=== PATIENT | female | born 1935 | race Caucasian/White ===

== ENCOUNTER 2020-10-01 12:46 | Emergency (ER) | payer MEDICARE, OTHER ==
--- NOTE | 2020-10-01 14:16 | CR ---
Chest: Portable view of the chest was obtained. Comparison: No prior chest imaging is available. Heart size is within normal limits for portable technique. Tortuous thoracic aorta is seen. Linear density is noted within the left midlung either due to atelectasis or minimal scarring. Lungs otherwise are clear. Bony structures show nothing acute. Impression: 1. Nothing acute is identified on portable chest x-ray. Diagnostic code #2
[2020-10-01] MEDS ORDERED: Meclizine 12.5 MG Tab PO ONE (14:31)
[2020-10-01] MEDS ORDERED: Meclizine 12.5 MG Tab ONE (14:36)
--- NOTE | 2020-10-01 14:41 | EDM.PDOC ---
ED HPI GENERAL MEDICAL PROBLEM - General Chief Complaint: Gastrointestinal Problem Stated Complaint: DIZZY/SOB/NAUSEA Time Seen by Provider: 10/01/20 13:03 Source of Information: Reports: Patient, Family, RN Notes Reviewed - History of Present Illness INITIAL COMMENTS - FREE TEXT/NARRATIVE: 85 yr old female has had vertigo type dizziness for 2 days. She had nausea with dry heaves earlier today. Now resting in bed not moving feels better at time of exam. No Anglin, fever or chills. No ear pain. No chest pain or difficulty breathing. - Related Data Allergies Allergy/AdvReac Type Severity Reaction Status Date / Time No Known Allergies Allergy Verified 10/01/20 12:58 Home Meds: Home Meds Meclizine [Antivert] 12.5 mg PO BID #14 tab 10/01/20 [Rx] Past Medical History HEENT History: Reports: Impaired Vision Cardiovascular History: Reports: Hypertension Musculoskeletal History: Reports: Osteoporosis Neurological History: Reports: Other (See Below) Other Neuro History: Dementia Psychiatric History: Reports: Dementia - Past Surgical History HEENT Surgical History: Reports: Other (See Below) Other HEENT Surgeries/Procedures: Throat Surgery Female Surgical History: Reports: Hysterectomy Social & Family History - Tobacco Use Tobacco Use Status *Q: Never Tobacco User - Caffeine Use Caffeine Use: Reports: Coffee - Recreational Drug Use Recreational Drug Use: No ED ROS GENERAL - Review of Systems Review Of Systems: See Below Constitutional: Denies: Fever, Chills, Diaphoresis HEENT: Denies: Ear Discharge, Ear Pain, Sinus Problem Respiratory: Denies: Shortness of Breath, Cough Cardiovascular: Denies: Chest Pain GI/Abdominal: Reports: Nausea, Vomiting (dry heaves, gone). Denies: Abdominal Pain Musculoskeletal: Denies: Shoulder Pain, Arm Pain, Back Pain Skin: Reports: No Symptoms Neurological: Reports: Dizziness. Denies: Headache, Numbness, Tingling, Trouble Speaking ED EXAM, DIZZINESS - Physical Exam Exam: See Below General Appearance: Alert, No Apparent Distress Eye Exam: Bilateral Eye: PERRL, Other (no nystagmus noted at time of exam) Ears: Normal External Exam, Normal Canal, Normal TMs Throat/Mouth: Normal Inspection, Normal Oropharynx Head Exam: Atraumatic Neck: Supple. No: Lymphadenopathy (L), Lymphadenopathy (R) Respiratory/Chest: No Respiratory Distress, Lungs Clear, Normal Breath Sounds Cardiovascular: Regular Rate, Rhythm GI/Abdominal: Soft, Non-Tender Neurological: Alert, No Motor/Sensory Deficits Skin Exam: Warm, Dry, Normal Color #1 Interpretation EKG Date: 10/01/20 Rhythm: NSR [place]: Normal P-Wave: Present QRS: Other (Q waves lead III) ST-T: Elevated (slight st elevation V2) QT: Normal Course - Vital Signs Last Recorded V/S: Last Vital Signs Temp 98.8 F 10/01/20 15:00 Pulse 79 10/01/20 15:00 Resp 18 10/01/20 15:00 BP 139/104 H 10/01/20 15:00 Pulse Ox 99 10/01/20 15:00 - Orders/Labs/Meds Orders: Active Orders 24 hr Category Date Time Status Head wo Cont [CT] Stat Exams 10/01/20 13:38 Taken Labs: Laboratory Tests 10/01/20 10/01/20 Range/Units 12:59 13:33 WBC 7.68 (3.98-10.04) K/mm3 RBC 4.26 (3.98-5.22) M/mm3 Hgb 12.5 (11.2-15.7) gm/dl Hct 39.1 (34.1-44.9) % MCV 91.8 (79.4-94.8) fl MCH 29.3 (25.6-32.2) pg MCHC 32.0 L (32.2-35.5) g/dl RDW Std Deviation 46.1 (36.4-46.3) fL Plt Count 272 (182-369) K/mm3 MPV 9.9 (9.4-12.3) fl Neut % (Auto) 80.8 H (34.0-71.1) % Lymph % (Auto) 9.9 L (19.3-51.7) % [place] % (Auto) 8.7 (4.7-12.5) % Eos % (Auto) 0.4 L (0.7-5.8) Baso % (Auto) 0.1 (0.1-1.2) % Neut # (Auto) 6.20 H (1.56-6.13) K/mm3 Lymph # (Auto) 0.76 L (1.18-3.74) K/mm3 [place] # (Auto) 0.67 H (0.24-0.36) K/mm3 Eos # (Auto) 0.03 L (0.04-0.36) K/mm3 Baso # (Auto) 0.01 (0.01-0.08) K/mm3 Manual Slide Review Normal smear Sodium 141 (136-145) mEq/L Potassium 4.0 (3.5-5.1) mEq/L Chloride 104 (98-107) mEq/L Carbon Dioxide 27 (21-32) mEq/L Anion Gap 14.0 (5-15) BUN 19 H (7-18) mg/dL Creatinine 1.2 H (0.55-1.02) mg/dL Est Cr Clr Drug Dosing 23.72 mL/min Estimated GFR (MDRD) 42 (>60) mL/min BUN/Creatinine Ratio 15.8 (14-18) Glucose 122 H (70-99) mg/dL Calcium 8.7 (8.5-10.1) mg/dL Total Bilirubin 0.4 (0.2-1.0) mg/dL AST 18 (15-37) U/L ALT 15 (14-59) U/L Alkaline Phosphatase 75 (46-116) U/L Troponin I < 0.017 (0.00-0.056) ng/mL Total Protein 7.2 (6.4-8.2) g/dl Albumin 3.5 (3.4-5.0) g/dl Globulin 3.7 gm/dL Albumin/Globulin Ratio 1.0 (1-2) Meds: Medications Discontinued Medications Generic Name Dose Route Start Last Admin Trade Name Aleksander PRN Reason Stop Dose Admin Meclizine HCl 12.5 mg 10/01/20 14:31 10/01/20 14:38 Meclizine 12.5 Mg Tab PO 10/01/20 14:32 12.5 mg ONETIME ONE Administration Meclizine HCl Confirm 10/01/20 14:36 10/01/20 14:39 Meclizine 12.5 Mg Tab Administered 10/01/20 14:37 Not Given Dose 12.5 mg .ROUTE .STK-MED ONE - Re-Assessments/Exams Free Text/Narrative Re-Assessment/Exam: 10/01/20 15:35 EKG, labs, CXR nl, have given antivert 12.5 mg PO. Departure - Departure Time of Disposition: 14:49 Disposition: Home, Self-Care 01 Condition: Fair Clinical Impression: Vertigo Diarrhea Qualifiers: Diarrhea type: unspecified type Qualified Code(s): R19.7 - Diarrhea, unspecified - Discharge Information Prescriptions: Meclizine [Antivert] 12.5 mg PO BID #14 tab Instructions: Vertigo, [id number] Referrals: Néstor Collazo MD [Primary Care Provider] - Forms: ED Department Discharge Additional Instructions: Antivert 12.5 mg twice daily for dizziness. Rest. Move slowly and carefully until symptoms of dizziness have completely resolved. Probiotic twice daily for the next 2 weeks or until after symptoms of dizziness have resolved. Follow up clinic as needed. Return to ED as needed if symptoms worsening in any way. Sepsis Event Note (ED) - Evaluation Sepsis Screening Result: No Definite Risk - Focused Exam Vital Signs: Vital Signs Temp Pulse Resp BP Pulse Ox 10/01/20 15:00 98.8 F 79 18 139/104 H 99 10/01/20 12:53 98.6 F 79 18 170/93 H 97 - My Orders Last 24 Hours: My Active Orders 10/01/20 13:38 Head wo Cont [CT] Stat - Assessment/Plan Last 24 Hours: My Active Orders 10/01/20 13:38 Head wo Cont [CT] Stat
--- NOTE | 2020-10-02 11:15 | CT ---
Head CT Technique: Multiple axial sections through the brain were obtained. Intravenous contrast was not utilized. Reconstructed coronal and sagittal images were obtained. Comparison: No prior intracranial imaging is available. Findings: Ventricles along with basal cisterns and sulci over the convexities are mildly prominent. Diminished density is noted within the periventricular and subcortical white matter which is most likely due to small vessel ischemic demyelination change. 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 No other abnormal parenchymal densities are seen. Atherosclerotic calcification is noted within the carotid siphon and within the vertebral vessels. Bone window settings were reviewed which show no acute calvarial abnormality. Visualized mastoid sinuses and paranasal sinuses show nothing acute. Impression: 1. Senescent change as described above. 2. Nothing acute is definitely appreciated on noncontrast head CT study. Diagnostic code #2 MTDD
== END 2020-10-01 15:04 | disposition home or self-care (01) ==
LOC: JD.ED 12:46
DX: R42 Dizziness and giddiness (principal); R19.7 Diarrhea, unspecified; I10 Essential (primary) hypertension
CPT/HCPCS: 36415; 70450; 71045; 80053; 84484; 85025; 93005; 99284; A9270; 93010; 99283

== ENCOUNTER 2020-10-02 08:41 | Inpatient (IN) | payer MEDICARE, OTHER ==
[2020-10-02] MEDS ORDERED: Metoclopramide 10 MG/2 ML SDV IVPUSH ONE (09:07)
--- NOTE | 2020-10-02 09:11 | EDM.PDOC ---
ED HPI GENERAL MEDICAL PROBLEM - General Chief Complaint: General Stated Complaint: [facility] Time Seen by Provider: 10/02/20 08:55 Source of Information: Reports: Patient, Family (One of her daughters arrives with her. She provides the little bit of history that she knows about.) History Limitations: Reports: Altered Mental Status (Patient apparently has a history of dementia.) - History of Present Illness INITIAL COMMENTS - FREE TEXT/NARRATIVE: 85-year-old female presents to the ED per [place] ambulance. Patient does not offer much in the way of history. History was primarily received from one of her daughters. The history provided by paramedics indicate that she was found outside in the driveway of her home about 0200 hrs. this morning seated. Unclear if she fell but they could not identify any obvious injuries. Apparently whenever other daughters was staying with her last evening. Of note the patient was seen through the ED yesterday with vertigo-like symptoms and has been treated with Antivert tablets. She did have a low-grade fever yesterday at 98.8 degrees with a slight left shift in her lab work at 80.8% neutrophils. She has been incontinent of urine appreciated by nursing staff at this time and the urine has a foul odor to it. The patient is not able to state that she has any dysuria urgency or frequency. Temperature today is 97.7. Onset: Unknown/Unsure (As described above she was found outside in her driveway at 0200 hrs. this morning seated. Unclear if she lost her balance due to vertigo symptoms and fell but there is no outward signs of any injuries. Patient herself is not able to provide any useful information or history.) Onset Date: 10/02/20 Duration: Hour(s): Location: Reports: Other (No obvious source of injuries identified.) Quality: Reports: Other (And wandering outside her home at 0200 hrs. this morning. She does have a history apparently of dementia. But she lives alone.) Severity: Moderate Improves with: Reports: None Worsens with: Reports: None Context: Reports: Other (Confusion.). Denies: Activity, Exercise, Lifting, Sick Contact, Trauma Associated Symptoms: Reports: Confusion, Cough (Nonproductive), Loss of Appetite, Malaise, Nausea/Vomiting (Nausea with no known vomiting.). Denies: Chest Pain, cough w sputum Treatments RESOURCE CONSERVATIONIST: Reports: Other (see below) (Was started on Antivert 12.5 mg every 8 hours yesterday.) - Related Data Allergies Allergy/AdvReac Type Severity Reaction Status Date / Time No Known Allergies Allergy Verified 10/01/20 12:58 Home Meds: Home Meds Meclizine [Antivert] 12.5 mg PO BID #14 tab 10/01/20 [Rx] Past Medical History HEENT History: Reports: Impaired Vision Cardiovascular History: Reports: Hypertension Musculoskeletal History: Reports: Osteoporosis Neurological History: Reports: Other (See Below) Other Neuro History: Dementia Psychiatric History: Reports: Dementia - Past Surgical History HEENT Surgical History: Reports: Other (See Below) Other HEENT Surgeries/Procedures: Throat Surgery Female Surgical History: Reports: Hysterectomy (And likely bilateral oophorectomy for salpingo-oophorectomy. It is suspect that she also had a coincidental appendectomy as the surgery was done over 40 years ago.) Social & Family History - Caffeine Use Caffeine Use: Reports: Coffee - Living Situation & Occupation Living situation: Reports: , Alone Occupation: Retired ED ROS GENERAL - Review of Systems Review Of Systems: See Below Constitutional: Reports: Malaise, Fatigue, Decreased Appetite (Has not eaten yet today.). Denies: Fever, Chills HEENT: Reports: Glasses Respiratory: Reports: Shortness of Breath, Cough (Patient claims a cough but I did not hear her cough.). Denies: Wheezing, Pleuritic Chest Pain, Sputum Cardiovascular: Reports: Blood Pressure Problem, Dyspnea on Exertion (Apparently having vertigo symptoms yesterday.), Other. Denies: Chest Pain, Claudication, Orthopnea Endocrine: Reports: Fatigue GI/Abdominal: Reports: Decreased Appetite : Reports: Incontinence (Urinary incontinence appreciate by nursing staff. She is wearing a depends. Urine apparently smells very foul.) Musculoskeletal: Reports: Neck Pain (Arthritic changes knees hips low back neck and shoulders.), Joint Pain Skin: Reports: No Symptoms Neurological: Reports: Confusion, Other (Presented to the ED apparently with vertigo-like symptoms yesterday.) Psychiatric: Reports: Confusion, Other (Carries a diagnosis in the chart of dementia.) Hematologic/Lymphatic: Reports: No Symptoms Immunologic: Reports: No Symptoms ED EXAM, GENERAL - Physical Exam Exam: See Below Exam Limited By: Altered Mental Status (Patient appears confused and does not answer questions. She does seem to obey commands.) General Appearance: No Apparent Distress, Other (Temperature is 36.3 degrees. Heart rate 87 in sinus. Respiratory is 18 with O2 sats of 94%. BP 158/91 her socks are noted to be quite dirty as if she has been wandering outside.) Eye Exam: Bilateral Eye: Normal Inspection (Mild blepharal pallor appreciated no scleral icterus.), Nystagmus, PERRL Ears: Normal TMs (No nystagmus appreciated) Throat/Mouth: Other (Tongue is dry and coated.) Head: Atraumatic, Normocephalic, Other (No outward signs of head or facial trauma). No: Facial Swelling, Facial Tenderness Neck: Normal Inspection, Non-Tender. No: Carotid Bruit, Lymphadenopathy (L), Lymphadenopathy (R) Respiratory/Chest: No Respiratory Distress, Lungs Clear, Normal Breath Sounds, No Accessory Muscle Use Cardiovascular: Regular Rate, Rhythm, No Edema, No Gallop, No Murmur, No Rub. No: Normal Peripheral Pulses Peripheral Pulses: 2+: Carotid (L), Carotid (R), Posterior Tibial (L), Posterior Tibial (R), Dorsalis Pedis (L), Dorsalis Pedis (R) GI/Abdominal: Normal Bowel Sounds, Soft, Non-Tender, No Organomegaly, No Mass, Pelvis Stable, Other (Midline laparotomy from umbilicus to pubic symphysis compatible with total abdominal hysterectomy) (Female) Exam: Other (Patient is wearing a depends.) Back Exam: Normal Inspection, Full Range of Motion, Other (No outward signs of abrasions contusions to her back.). No: CVA Tenderness (L), CVA Tenderness (R) Extremities: Joint Swelling (Osteoarthritic changes in both hands particularly PIP and DIP joints. Some arthritis appreciated both hips and knees. No signs of any injury to any extremity), Other (Slight erythema over the right patella suggesting friction-like injury. There is no abrasion or open skin wounds.) Neurological: No: Oriented, CN II-XII Intact, Normal Cognition Psychiatric: Flat Affect Skin Exam: Warm, Dry, Intact, Normal Color, No Rash #1 Interpretation EKG Date: 10/02/20 Time: 09:23 Rhythm: NSR Rate (Beats/Min): 82 [place]: Normal P-Wave: Enlarged (Consider left atrial hypertrophy) QRS: Other (Q waves V1 and V2 consider old anteroseptal myocardial infarction. Decreased voltage limb and precordial leads.) ST-T: Other (Nonspecific T wave flattening aVL.) QT: Prolonged EKG Interpretation Comments: Abnormal ECG Course - Vital Signs Last Recorded V/S: Last Vital Signs Temp 36.8 C 10/02/20 19:11 Pulse 88 10/02/20 19:11 Resp 16 10/02/20 19:11 BP 130/66 10/02/20 19:11 Pulse Ox 97 10/02/20 19:11 - Orders/Labs/Meds Orders: Active Orders 24 hr Category Date Time Status CULTURE BLOOD [BC] Stat Lab 10/02/20 09:44 Received CULTURE BLOOD [BC] Stat Lab 10/02/20 09:53 Received Dextrose 5%-0.9% NaCl [Dextrose 5%-Normal Saline] 1,000 Med 10/02/20 11:00 Active ml IV ASDIRECTED Blood Culture x2 Reflex Set [OM.PC] Stat Oth 10/02/20 09:08 Ordered Medication Orders Acetaminophen (Acetaminophen 325 Mg Tab) 650 mg PO Q4H PRN PRN Reason: Pain (Mild 1-3)/fever Aspirin (Aspirin 81 Mg Tab.Chew) 81 mg PO DAILY [facility] Atorvastatin Calcium (Atorvastatin 40 Mg Tab) 40 mg PO BEDTIME [facility] Clopidogrel Bisulfate (Clopidogrel 75 Mg Tab) 75 mg PO DAILY [facility] Docusate Sodium (Docusate Sodium 100 Mg Cap) 100 mg PO BID PRN PRN Reason: Constipation Heparin Sodium (Porcine) (Heparin Sodium 5,000 Units/Ml Vial) 5,000 units SUBCUT Q8H [facility] Last Admin: 10/02/20 15:12 Dose: 5,000 units Documented by: ISABEL Dextrose/Sodium Chloride (Dextrose 5%-Normal Saline) 1,000 mls @ 75 mls/hr IV ASDIRECTED [facility] Ondansetron HCl (Ondansetron 4 Mg Tab.Dis) 4 mg PO Q4H PRN PRN Reason: nausea, able to take PO Ondansetron HCl (Ondansetron 4 Mg/2 Ml Sdv) 4 mg IV Q4H PRN PRN Reason: Nausea/Vomiting Sodium Chloride (Sodium Chloride 0.9% 10 Ml Syringe) 10 ml FLUSH ASDIRECTED PRN PRN Reason: Keep Vein Open Labs: Laboratory Tests 10/02/20 10/02/20 10/02/20 Range/Units 09:44 09:44 09:44 WBC 6.52 (3.98-10.04) K/mm3 RBC 3.96 L (3.98-5.22) M/mm3 Hgb 11.9 (11.2-15.7) gm/dl Hct 36.6 (34.1-44.9) % MCV 92.4 (79.4-94.8) fl MCH 30.1 (25.6-32.2) pg MCHC 32.5 (32.2-35.5) g/dl RDW Std Deviation 47.2 H (36.4-46.3) fL Plt Count 282 (182-369) K/mm3 MPV 10.1 (9.4-12.3) fl Neut % (Auto) 79.5 H (34.0-71.1) % Lymph % (Auto) 10.6 L (19.3-51.7) % [place] % (Auto) 9.2 (4.7-12.5) % Eos % (Auto) 0.2 L (0.7-5.8) Baso % (Auto) 0.3 (0.1-1.2) % Neut # (Auto) 5.19 (1.56-6.13) K/mm3 Lymph # (Auto) 0.69 L (1.18-3.74) K/mm3 [place] # (Auto) 0.60 H (0.24-0.36) K/mm3 Eos # (Auto) 0.01 L (0.04-0.36) K/mm3 Baso # (Auto) 0.02 (0.01-0.08) K/mm3 PT 10.3 (9.7-12.0) SECONDS INR 0.96 APTT 25.4 (21.7-31.4) SECONDS Sodium 142 (136-145) mEq/L Potassium 3.8 (3.5-5.1) mEq/L Chloride 105 (98-107) mEq/L Carbon Dioxide 25 (21-32) mEq/L Anion Gap 15.8 H (5-15) BUN 21 H (7-18) mg/dL Creatinine 1.3 H (0.55-1.02) mg/dL Est Cr Clr Drug Dosing 21.90 mL/min Estimated GFR (MDRD) 39 (>60) mL/min BUN/Creatinine Ratio 16.2 (14-18) Glucose 102 H (70-99) mg/dL Lactic Acid (0.4-2.0) mmol/L Calcium 8.6 (8.5-10.1) mg/dL Magnesium 2.1 (1.8-2.4) mg/dL Total Bilirubin 0.4 (0.2-1.0) mg/dL AST 19 (15-37) U/L ALT 19 (14-59) U/L Alkaline Phosphatase 72 (46-116) U/L Troponin I 0.082 H* (0.00-0.056) ng/mL C-Reactive Protein 0.5 (<1.0) mg/dL NT-Pro-B Natriuret Pep (0-450) pg/mL Total Protein 7.0 (6.4-8.2) g/dl Albumin 3.5 (3.4-5.0) g/dl Globulin 3.5 gm/dL Albumin/Globulin Ratio 1.0 (1-2) Triglycerides (<150) mg/dL Cholesterol (<200) mg/dL LDL Cholesterol Direct (<100) mg/dL HDL Cholesterol (40-59) mg/dL Urine Color (Yellow) Urine Appearance (Clear) Urine pH (5.0-8.0) Ur Specific [place] (1.005-1.030) Urine Protein (Negative) Urine Glucose (UA) (Negative) Urine Ketones (Negative) Urine Occult Blood (Negative) Urine Nitrite (Negative) Urine Bilirubin (Negative) Urine Urobilinogen (0.2-1.0) Ur Leukocyte Esterase (Negative) Urine RBC (0-5) /hpf Urine WBC (0-5) /hpf Ur Epithelial Cells (0-5) /hpf Urine Bacteria (FEW) /hpf Urine Mucus (FEW) /hpf Ethyl Alcohol 0.00 (0.00) gm% SARS-CoV-2 RNA ([facility]) (NEGATIVE) 10/02/20 10/02/20 10/02/20 Range/Units 09:44 09:44 09:44 WBC (3.98-10.04) K/mm3 RBC (3.98-5.22) M/mm3 Hgb (11.2-15.7) gm/dl Hct (34.1-44.9) % MCV (79.4-94.8) fl MCH (25.6-32.2) pg MCHC (32.2-35.5) g/dl RDW Std Deviation (36.4-46.3) fL Plt Count (182-369) K/mm3 MPV (9.4-12.3) fl Neut % (Auto) (34.0-71.1) % Lymph % (Auto) (19.3-51.7) % [place] % (Auto) (4.7-12.5) % Eos % (Auto) (0.7-5.8) Baso % (Auto) (0.1-1.2) % Neut # (Auto) (1.56-6.13) K/mm3 Lymph # (Auto) (1.18-3.74) K/mm3 [place] # (Auto) (0.24-0.36) K/mm3 Eos # (Auto) (0.04-0.36) K/mm3 Baso # (Auto) (0.01-0.08) K/mm3 PT (9.7-12.0) SECONDS INR APTT (21.7-31.4) SECONDS Sodium (136-145) mEq/L Potassium (3.5-5.1) mEq/L Chloride (98-107) mEq/L Carbon Dioxide (21-32) mEq/L Anion Gap (5-15) BUN (7-18) mg/dL Creatinine (0.55-1.02) mg/dL Est Cr Clr Drug Dosing mL/min Estimated GFR (MDRD) (>60) mL/min BUN/Creatinine Ratio (14-18) Glucose (70-99) mg/dL Lactic Acid 0.8 (0.4-2.0) mmol/L Calcium (8.5-10.1) mg/dL Magnesium (1.8-2.4) mg/dL Total Bilirubin (0.2-1.0) mg/dL AST (15-37) U/L ALT (14-59) U/L Alkaline Phosphatase (46-116) U/L Troponin I (0.00-0.056) ng/mL C-Reactive Protein (<1.0) mg/dL NT-Pro-B Natriuret Pep 2262 H (0-450) pg/mL Total Protein (6.4-8.2) g/dl Albumin (3.4-5.0) g/dl Globulin gm/dL Albumin/Globulin Ratio (1-2) Triglycerides 75 (<150) mg/dL Cholesterol 256 H (<200) mg/dL LDL Cholesterol Direct 152 H* (<100) mg/dL HDL Cholesterol 77.0 H (40-59) mg/dL Urine Color (Yellow) Urine Appearance (Clear) Urine pH (5.0-8.0) Ur Specific [place] (1.005-1.030) Urine Protein (Negative) Urine Glucose (UA) (Negative) Urine Ketones (Negative) Urine Occult Blood (Negative) Urine Nitrite (Negative) Urine Bilirubin (Negative) Urine Urobilinogen (0.2-1.0) Ur Leukocyte Esterase (Negative) Urine RBC (0-5) /hpf Urine WBC (0-5) /hpf Ur Epithelial Cells (0-5) /hpf Urine Bacteria (FEW) /hpf Urine Mucus (FEW) /hpf Ethyl Alcohol (0.00) gm% SARS-CoV-2 RNA ([place]ORRIE) (NEGATIVE) 10/02/20 10/02/20 Range/Units 10:20 10:20 WBC (3.98-10.04) K/mm3 RBC (3.98-5.22) M/mm3 Hgb (11.2-15.7) gm/dl Hct (34.1-44.9) % MCV (79.4-94.8) fl MCH (25.6-32.2) pg MCHC (32.2-35.5) g/dl RDW Std Deviation (36.4-46.3) fL Plt Count (182-369) K/mm3 MPV (9.4-12.3) fl Neut % (Auto) (34.0-71.1) % Lymph % (Auto) (19.3-51.7) % [place] % (Auto) (4.7-12.5) % Eos % (Auto) (0.7-5.8) Baso % (Auto) (0.1-1.2) % Neut # (Auto) (1.56-6.13) K/mm3 Lymph # (Auto) (1.18-3.74) K/mm3 [place] # (Auto) (0.24-0.36) K/mm3 Eos # (Auto) (0.04-0.36) K/mm3 Baso # (Auto) (0.01-0.08) K/mm3 PT (9.7-12.0) SECONDS INR APTT (21.7-31.4) SECONDS Sodium (136-145) mEq/L Potassium (3.5-5.1) mEq/L Chloride (98-107) mEq/L Carbon Dioxide (21-32) mEq/L Anion Gap (5-15) BUN (7-18) mg/dL Creatinine (0.55-1.02) mg/dL Est Cr Clr Drug Dosing mL/min Estimated GFR (MDRD) (>60) mL/min BUN/Creatinine Ratio (14-18) Glucose (70-99) mg/dL Lactic Acid (0.4-2.0) mmol/L Calcium (8.5-10.1) mg/dL Magnesium (1.8-2.4) mg/dL Total Bilirubin (0.2-1.0) mg/dL AST (15-37) U/L ALT (14-59) U/L Alkaline Phosphatase (46-116) U/L Troponin I (0.00-0.056) ng/mL C-Reactive Protein (<1.0) mg/dL NT-Pro-B Natriuret Pep (0-450) pg/mL Total Protein (6.4-8.2) g/dl Albumin (3.4-5.0) g/dl Globulin gm/dL Albumin/Globulin Ratio (1-2) Triglycerides (<150) mg/dL Cholesterol (<200) mg/dL LDL Cholesterol Direct (<100) mg/dL HDL Cholesterol (40-59) mg/dL Urine Color Yellow (Yellow) Urine Appearance Clear (Clear) Urine pH 6.0 (5.0-8.0) Ur Specific [place] 1.025 (1.005-1.030) Urine Protein Negative (Negative) Urine Glucose (UA) Negative (Negative) Urine Ketones Negative (Negative) Urine Occult Blood Trace-intact H (Negative) Urine Nitrite Positive H (Negative) Urine Bilirubin Negative (Negative) Urine Urobilinogen 0.2 (0.2-1.0) Ur Leukocyte Esterase Negative (Negative) Urine RBC 0-5 (0-5) /hpf Urine WBC 0-5 (0-5) /hpf Ur Epithelial Cells 0-5 (0-5) /hpf Urine Bacteria Many H (FEW) /hpf Urine Mucus Not seen (FEW) /hpf Ethyl Alcohol (0.00) gm% SARS-CoV-2 RNA ([place]) Negative (NEGATIVE) Meds: Medications Generic Name Dose Route Start Last Admin Trade Name Aleksander PRN Reason Stop Dose Admin Acetaminophen 650 mg 10/02/20 13:22 Acetaminophen 325 Mg Tab PO Q4H PRN Pain (Mild 1-3)/fever Aspirin 81 mg 10/03/20 09:00 Aspirin 81 Mg Tab.Chew PO DAILY [facility] Atorvastatin Calcium 40 mg 10/02/20 21:00 Atorvastatin 40 Mg Tab PO BEDTIME [facility] Clopidogrel Bisulfate 75 mg 10/03/20 09:00 Clopidogrel 75 Mg Tab PO DAILY [facility] Docusate Sodium 100 mg 10/02/20 13:22 Docusate Sodium 100 Mg Cap PO BID PRN Constipation Heparin Sodium (Porcine) 5,000 units 10/02/20 15:00 10/02/20 15:12 Heparin Sodium 5,000 Units/Ml Vial SUBCUT 5,000 units Q8H [facility] Administration Dextrose/Sodium Chloride 1,000 mls @ 75 mls/hr 10/02/20 11:00 Dextrose 5%-Normal Saline IV ASDIRECTED [facility] Ondansetron HCl 4 mg 10/02/20 13:22 Ondansetron 4 Mg Tab.Dis PO Q4H PRN nausea, able to take PO Ondansetron HCl 4 mg 10/02/20 13:22 Ondansetron 4 Mg/2 Ml Sdv IV Q4H PRN Nausea/Vomiting Sodium Chloride 10 ml 10/02/20 13:22 Sodium Chloride 0.9% 10 Ml Syringe FLUSH ASDIRECTED PRN Keep Vein Open Discontinued Medications Generic Name Dose Route Start Last Admin Trade Name Aleksander PRN Reason Stop Dose Admin Aspirin 324 mg 10/02/20 12:32 10/02/20 13:46 Aspirin 81 Mg Tab.Chew PO 10/02/20 12:33 324 mg ONETIME ONE Administration Clopidogrel Bisulfate 75 mg 10/02/20 12:33 10/02/20 13:46 Clopidogrel 75 Mg Tab PO 10/02/20 12:34 75 mg ONETIME ONE Administration Furosemide 40 mg 10/02/20 10:48 10/02/20 11:30 Furosemide 40 Mg/4 Ml Vial IVPUSH 10/02/20 10:49 40 mg NOW ONE Administration Dextrose/Sodium Chloride 1,000 mls @ 250 mls/hr 10/02/20 09:15 10/02/20 10:07 Dextrose 5%-Normal Saline IV 250 mls/hr ASDIRECTED [facility] Administration Metoclopramide HCl 5 mg 10/02/20 09:07 10/02/20 10:06 Metoclopramide 10 Mg/2 Ml Sdv IVPUSH 10/02/20 09:08 5 mg ONETIME ONE Administration - Radiology Interpretation Free Text/Narrative:: Elderly female from [place] presents to the ED per local ambulance. She was seen through the ED yesterday with vertigo-like symptoms. Appears that she did have a low-grade fever yesterday of 98.8 degrees in the chart and a slight left shift of white count which was normal at 80.8% neutrophils. No identified fever at home. She carries a diagnosis of mild dementia. Apparently she was found wandering outside this morning in her driveway and was found seated in the driveway around 0200 hrs. by the sister that was caring for her. Patient is not able to provide any useful history. She has no outward signs of head neck facial or extremity trauma. Nurses appreciated incontinence of urine which had a very foul odor to it. Plan routine labs to be done including blood cultures x2 although she is afebrile at this time. Urine will be obtained by catheterization. COVID-19 screen since there is a good chance she will end up staying in the hospital. - Re-Assessments/Exams Free Text/Narrative Re-Assessment/Exam: 10/02/20 10:22 chest x-ray done portably reveals heart size to be within normal limits per portable technique. Tortuous thoracic aorta appreciated. Lung markings are slightly increased which is believed to be caused by slightly poor inspiratory effort. Lungs are otherwise clear. Bony structures show nothing acute.Hematology is back revealing a normal white count at 6.52. The auto differential shows 79.5% neutrophils. Hemoglobin is slightly low at 11.9 with hematocrit of 36.6. Platelet count 282,000 CT of the head completed. Reveals the ventricles along with the basal cisterns and sulci over the convexities to be mildly prominent. Diminished density is noted within the periventricular white matter which is combined with small vessel ischemic demyelination change. Old cerebral infarct is noted within the posterior left parietal region. Mild area of diminished density is noted within the posterior right parietal and occipital region which raises the possibility of an early infarct. No midline shift is seen. Bone window settings were reviewed. No acute calvarial finding is seen. Visualized mastoid sinuses and paranasal sinuses are clear. Atherosclerotic calcification is noted within the carotid siphon. I will see if there is MRI availability this morning to further look at her brain to identify possible infarct. 10/02/20 10:42 there is MRI availability. I will order MRI of her brain.PT is 10.3 with an INR of 0.96. PTT is 25.4. Urinalysis shows positive nitrates trace of occult blood negative leukocyte esterase and no red cells or white cells on the micro. 10/02/20 10:48 Chemistry reveals a sodium of 142 and a potassium of 3.8. Chloride 105 with a bicarb of 25. Anion gap is 15.8. BUN is 21 with a creatinine of 1.3 and a GFR of 39. I stage IIIb renal insufficiency. Glucose is 102. Lactic acid is 0.8. Calcium is 8.6 with a magnesium of 2.1. Liver function is normal. Troponin I is elevated at 0.082. C-reactive protein is 0.5 BNP is elevated at 2262 which would account for the slightly elevated troponin. Total protein is 7.0 with an albumin fraction of 3.5. Blood alcohol is 0.00 IV will be turned down from 250 mils an hour to 75 mils per hour. We will give Lasix 40 mg IV. This will have to be given after she returns from the MRI suite. 10/02/20 12:30 I have spoken with neurologist at [facility] in [place] Dr. Balbuena and she agrees that treatment would be Plavix 75 mg daily for a minimum of 3 weeks with aspirin 325 mg daily. The question is how far to proceed with aggressive investigations if there is no plan to aggressively treat her. I agree with an echocardiogram of her heart but most of the diffusion abnormalities appreciated on MRI are from the posterior circulation suggesting vertebral artery occlusions. Is unclear whether it is worthwhile to pursue CT angiogram of head and neck. 10/02/20 13:00: I have discussed the case with Dr. Tobar on-call hospitalist and he will see the patient in the ED. At this point time it appears that aggressive investigation is futile due to underlying dementia and the treatment will be the same in terms of aspirin and Plavix in the short-term and then aspirin in the long-term. Departure - Departure Time of Disposition: 13:45 Disposition: Admitted As Inpatient 64 Condition: Poor Clinical Impression: Multiple cerebral infarctions, Elevated troponin I measurement Dementia Qualifiers: Dementia type: Alzheimer's Alzheimer's disease onset: late-onset Dementia behavioral disturbance: without behavioral disturbance Qualified Code(s): G30.1 - Alzheimer's disease with late onset Congestive heart failure Qualifiers: Heart failure type: unspecified Heart failure chronicity: chronic Qualified Code(s): I50.9 - Heart failure, unspecified - Discharge Information Sepsis Event Note (ED) - Focused Exam Vital Signs: Vital Signs Temp Pulse Resp BP 10/02/20 09:04 36.3 C 87 18 158/91 H - My Orders Last 24 Hours: My Active Orders 10/02/20 09:08 Blood Culture x2 Reflex Set [OM.PC] Stat 10/02/20 09:44 CULTURE BLOOD [BC] Stat 10/02/20 09:53 CULTURE BLOOD [BC] Stat 10/02/20 11:00 Dextrose 5%-0.9% NaCl [Dextrose 5%-Normal Saline] 1,000 ml IV ASDIRECTED - Assessment/Plan Last 24 Hours: My Active Orders 10/02/20 09:08 Blood Culture x2 Reflex Set [OM.PC] Stat 10/02/20 09:44 CULTURE BLOOD [BC] Stat 10/02/20 09:53 CULTURE BLOOD [BC] Stat 10/02/20 11:00 Dextrose 5%-0.9% NaCl [Dextrose 5%-Normal Saline] 1,000 ml IV ASDIRECTED
[2020-10-02] MEDS ORDERED: Dextrose 5%-0.9% NaCl 1,000 ML IV SCH (09:15)
--- NOTE | 2020-10-02 09:38 | CR ---
Chest: Portable view of the chest was obtained. Comparison: Prior chest x-ray of 10/01/20. Heart size is within normal limits for portable technique. Tortuous thoracic aorta is noted. Lung markings are slightly increased which is believed to be caused by slightly poor inspiratory effort. Lungs otherwise are clear. Bony structures show nothing acute. Questionable surgical clips within the upper right abdomen. Impression: 1. Slightly limited inspiratory effort. 2. Nothing acute is otherwise appreciated on portable chest x-ray. Diagnostic code #2
--- NOTE | 2020-10-02 09:51 | CT ---
Head CT Technique: Multiple axial sections through the brain were obtained. Intravenous contrast was not utilized. Reconstructed coronal and sagittal images were obtained. Comparison: Prior head CT study of 10/01/20. Findings: Ventricles along with basal cisterns and sulci over the convexities are mildly prominent. Diminished density is noted within the periventricular white matter which is compatible with small vessel ischemic demyelination change. Old infarct is noted within the posterior left parietal region. Mild area of diminished density is noted within the posterior right parietal and occipital region which raises the possibility of an early infarct. No midline shift is seen. Bone window settings were reviewed. No acute calvarial finding is seen. Visualized mastoid sinuses and paranasal sinuses are clear. Atherosclerotic calcification noted within the carotid siphon. Impression: 1. Stable senescent change as noted above. 2. Findings suspicious for acute infarct within the right posterior occipital and parietal region. MRI study would be confirmatory if clinically indicated. Diagnostic code #3
[2020-10-02] MEDS ORDERED: Furosemide 40 MG/4 ML VIAL IVPUSH ONE (10:48)
--- NOTE | 2020-10-02 11:22 | MR ---
MRI brain Technique: T1 sagittal; T2 FLAIR, T2 and diffusion axial; T2 gradient coronal images were obtained. Limitations: Significant motion artifact is present. Comparison: Prior head CT study performed earlier on the same day. Findings: There are areas of increased signal within the periventricular white matter compatible with small vessel ischemic demyelination change. Other areas of increased signal are seen within the occipital and parietal regions. Normal signal void is seen within the major cerebral arteries within the skull base. Diffusion images are much better in quality. Multiple small areas of abnormal diffusion are seen within the cerebellum and within the brainstem. Multiple diffusion abnormalities are noted within the occipital lobes. Additional areas of diffusion abnormalities are noted within the thalamus on both sides. Impression: 1. Numerous diffusion abnormalities as noted above. Findings are compatible with multiple areas of infarcts within the posterior fossa and above the tentorium involving the basal ganglia as well as occipital lobes bilaterally. Areas of infarct suggest the possibility of embolic phenomena. Diagnostic code #5
[2020-10-02] MEDS ORDERED: Aspirin 81 MG Tab.Chew PO ONE (12:32)
[2020-10-02] MEDS ORDERED: Clopidogrel 75 MG Tab PO ONE (12:33)
[2020-10-02] MEDS ORDERED: Ondansetron 4 MG Tab.DIS PO PRN (13:22)
[2020-10-02] MEDS ORDERED: Ondansetron 4 MG/2 ML SDV IV PRN (13:22)
[2020-10-02] MEDS ORDERED: Docusate Sodium 100 MG Cap PO PRN (13:22)
[2020-10-02] MEDS ORDERED: Sodium Chloride 0.9% 10 ML Syringe FLUSH PRN (13:22)
--- NOTE | 2020-10-02 13:31 | PCM.HP.2 ---
H&P History of Present Illness - General Date of Service: 10/02/20 Admit Problem/Dx: Admission Diagnosis/Problem Admission Diagnosis/Problem Cerebrovascular accident Source of Information: Family, Provider History Limitations: Reports: Other (Dementia) - History of Present Illness Initial Comments - Free Text/Narative: Past medical history as listed below who presents to the [facility] emergency department with her daughter due to fall earlier today as well as generally appearing unstable for the past 2 days. According to the daughter and ER personnel, the patient was in her usual state of health up until 2 days ago when her daughter noticed that she was having di fficulties walking. She seemed to be more confused than usual as well. She was using the chand and various objects in order to help stand as she seemed wobbly on her feet. She also seemed to have a decline in her vision and was wondering why her glasses were not working as well as usual. She denied any blind spots, however. Vision seems to be blurry at times. She was also complaining of new lightheadedness and dizziness, which prompted an evaluation at the local clinic yesterday. She was "checked out" and deemed safe to go home. She was given a prescription for meclizine; low-dose at 12.5 mg twice daily. This has not seemed to be a remedy for her dizziness and lightheadedness at home, which is continuing to be her most prominent symptom. Upon trying to get into the car earlier today she had exquisite difficulty and lost her balance. She was caught and lowered to the floor. She was then brought into the emergency department for evaluation. Her neurologic exam seem to be mostly benign with the exception of exquisite dementia. No obvious focal deficits were noted. Work-up was notable for multiple embolic events on CT and MRI of the brain. A consult between ER personnel and neurology was held. It was recommended that the patient be placed on statin therapy as well as dual antiplatelet therapy. Aggressive work-up was not wanted by the family. Patient was referred to the internal medicine service for further evaluation if necessary and for case management and social work consults to help the family relocate this pleasant lady to a facility in which she can be watched and cared for. The patient lives alone, her daughter who is present with her today typically stays with her 3 days out of the week, but she is always by her self at night. The patient is not complaining of any specific symptoms. A 14 point review of systems was reviewed with the patient's daughter and only pertinent for the above information. CODE STATUS: Reviewed and full code for now. We are awaiting answers from her power of compliance attorney who happens to be her son who is unavailable by telephone at current time. - Related Data Allergies/Adverse Reactions: Allergies Allergy/AdvReac Type Severity Reaction Status Date / Time No Known Allergies Allergy Verified 10/01/20 12:58 Home Medications: Home Meds Meclizine [Antivert] 12.5 mg PO BID #14 tab 10/01/20 [Rx] Past Medical History HEENT History: Reports: Impaired Vision Cardiovascular History: Reports: Hypertension Musculoskeletal History: Reports: Osteoporosis Neurological History: Reports: Other (See Below) Other Neuro History: Dementia Psychiatric History: Reports: Dementia - Past Surgical History HEENT Surgical History: Reports: Other (See Below) Other HEENT Surgeries/Procedures: Throat Surgery Female Surgical History: Reports: Hysterectomy (And likely bilateral oophorectomy for salpingo-oophorectomy. It is suspect that she also had a coincidental appendectomy as the surgery was done over 40 years ago.) Social & Family History - Caffeine Use Caffeine Use: Reports: Coffee - Living Situation & Occupation Living situation: Reports: , Alone Occupation: Retired H&P Review of Systems - Review of Systems: Review Of Systems: Comprehensive ROS is negative, except as noted in HPI. Neurological: Reports: Dizziness, Difficulty Walking Exam - Exam Exam: See Below - Vital Signs Vital Signs: Last Vital Signs Temp 97.4 F 10/02/20 09:04 Pulse 87 10/02/20 09:04 Resp 18 10/02/20 09:04 BP 158/91 H 10/02/20 09:04 Pulse Ox Weight: 150 lb - Exam General: Alert (Only oriented to herself. Recognizes her daughter and her name. Not oriented to place or time.) HEENT: Conjunctiva Clear, EOMI, Pupils Equal, Pupils Reactive Neck: Supple, Trachea Midline Lungs: Clear to Auscultation, Normal Respiratory Effort Cardiovascular: Regular Rate, Normal S1, Normal S2 GI/Abdominal Exam: Normal Bowel Sounds, Soft, Non-Tender, No Distention Extremities: Normal Inspection, No Pedal Edema Skin: Warm, Dry, Intact Neurological: Cranial Nerves Intact, Reflexes Equal Bilateral, Strength Equal Bilateral, Sensation Intact, Other (gait not tested in the emergency department) Neuro Extensive - Mental Status: Normal Mood/Affect, Disorientation to Place, Disorientation to Time Neuro Extensive - Motor, Sensory, Reflexes: No: Tongue Deviation (L), Tongue Deviation (R), Expressive Aphasia, Hemeplagia (R), Hemeplagia (L), Pronator Drift (R), Pronator Drift (L), Babinski, Motor/Sensory Deficits - Patient Data Lab Results Last 24 hrs: Laboratory Results - last 24 hr 10/02/20 10/02/20 10/02/20 Range/Units 09:44 09:44 09:44 WBC 6.52 (3.98-10.04) K/mm3 RBC 3.96 L (3.98-5.22) M/mm3 Hgb 11.9 (11.2-15.7) gm/dl Hct 36.6 (34.1-44.9) % MCV 92.4 (79.4-94.8) fl MCH 30.1 (25.6-32.2) pg MCHC 32.5 (32.2-35.5) g/dl RDW Std Deviation 47.2 H (36.4-46.3) fL Plt Count 282 (182-369) K/mm3 MPV 10.1 (9.4-12.3) fl Neut % (Auto) 79.5 H (34.0-71.1) % Lymph % (Auto) 10.6 L (19.3-51.7) % [place] % (Auto) 9.2 (4.7-12.5) % Eos % (Auto) 0.2 L (0.7-5.8) Baso % (Auto) 0.3 (0.1-1.2) % Neut # (Auto) 5.19 (1.56-6.13) K/mm3 Lymph # (Auto) 0.69 L (1.18-3.74) K/mm3 [place] # (Auto) 0.60 H (0.24-0.36) K/mm3 Eos # (Auto) 0.01 L (0.04-0.36) K/mm3 Baso # (Auto) 0.02 (0.01-0.08) K/mm3 PT 10.3 (9.7-12.0) SECONDS INR 0.96 APTT 25.4 (21.7-31.4) SECONDS Sodium 142 (136-145) mEq/L Potassium 3.8 (3.5-5.1) mEq/L Chloride 105 (98-107) mEq/L Carbon Dioxide 25 (21-32) mEq/L Anion Gap 15.8 H (5-15) BUN 21 H (7-18) mg/dL Creatinine 1.3 H (0.55-1.02) mg/dL Est Cr Clr Drug Dosing 21.90 mL/min Estimated GFR (MDRD) 39 (>60) mL/min BUN/Creatinine Ratio 16.2 (14-18) Glucose 102 H (70-99) mg/dL Lactic Acid (0.4-2.0) mmol/L Calcium 8.6 (8.5-10.1) mg/dL Magnesium 2.1 (1.8-2.4) mg/dL Total Bilirubin 0.4 (0.2-1.0) mg/dL AST 19 (15-37) U/L ALT 19 (14-59) U/L Alkaline Phosphatase 72 (46-116) U/L Troponin I 0.082 H* (0.00-0.056) ng/mL C-Reactive Protein 0.5 (<1.0) mg/dL NT-Pro-B Natriuret Pep (0-450) pg/mL Total Protein 7.0 (6.4-8.2) g/dl Albumin 3.5 (3.4-5.0) g/dl Globulin 3.5 gm/dL Albumin/Globulin Ratio 1.0 (1-2) Urine Color (Yellow) Urine Appearance (Clear) Urine pH (5.0-8.0) Ur Specific Dudley (1.005-1.030) Urine Protein (Negative) Urine Glucose (UA) (Negative) Urine Ketones (Negative) Urine Occult Blood (Negative) Urine Nitrite (Negative) Urine Bilirubin (Negative) Urine Urobilinogen (0.2-1.0) Ur Leukocyte Esterase (Negative) Urine RBC (0-5) /hpf Urine WBC (0-5) /hpf Ur Epithelial Cells (0-5) /hpf Urine Bacteria (FEW) /hpf Urine Mucus (FEW) /hpf Ethyl Alcohol 0.00 (0.00) gm% SARS-CoV-2 RNA (LORRIE) (NEGATIVE) 10/02/20 10/02/20 10/02/20 Range/Units 09:44 09:44 10:20 WBC (3.98-10.04) K/mm3 RBC (3.98-5.22) M/mm3 Hgb (11.2-15.7) gm/dl Hct (34.1-44.9) % MCV (79.4-94.8) fl MCH (25.6-32.2) pg MCHC (32.2-35.5) g/dl RDW Std Deviation (36.4-46.3) fL Plt Count (182-369) K/mm3 MPV (9.4-12.3) fl Neut % (Auto) (34.0-71.1) % Lymph % (Auto) (19.3-51.7) % [place] % (Auto) (4.7-12.5) % Eos % (Auto) (0.7-5.8) Baso % (Auto) (0.1-1.2) % Neut # (Auto) (1.56-6.13) K/mm3 Lymph # (Auto) (1.18-3.74) K/mm3 [place] # (Auto) (0.24-0.36) K/mm3 Eos # (Auto) (0.04-0.36) K/mm3 Baso # (Auto) (0.01-0.08) K/mm3 PT (9.7-12.0) SECONDS INR APTT (21.7-31.4) SECONDS Sodium (136-145) mEq/L Potassium (3.5-5.1) mEq/L Chloride (98-107) mEq/L Carbon Dioxide (21-32) mEq/L Anion Gap (5-15) BUN (7-18) mg/dL Creatinine (0.55-1.02) mg/dL Est Cr Clr Drug Dosing mL/min Estimated GFR (MDRD) (>60) mL/min BUN/Creatinine Ratio (14-18) Glucose (70-99) mg/dL Lactic Acid 0.8 (0.4-2.0) mmol/L Calcium (8.5-10.1) mg/dL Magnesium (1.8-2.4) mg/dL Total Bilirubin (0.2-1.0) mg/dL AST (15-37) U/L ALT (14-59) U/L Alkaline Phosphatase (46-116) U/L Troponin I (0.00-0.056) ng/mL C-Reactive Protein (<1.0) mg/dL NT-Pro-B Natriuret Pep 2262 H (0-450) pg/mL Total Protein (6.4-8.2) g/dl Albumin (3.4-5.0) g/dl Globulin gm/dL Albumin/Globulin Ratio (1-2) Urine Color Yellow (Yellow) Urine Appearance Clear (Clear) Urine pH 6.0 (5.0-8.0) Ur Specific Dudley 1.025 (1.005-1.030) Urine Protein Negative (Negative) Urine Glucose (UA) Negative (Negative) Urine Ketones Negative (Negative) Urine Occult Blood Trace-intact H (Negative) Urine Nitrite Positive H (Negative) Urine Bilirubin Negative (Negative) Urine Urobilinogen 0.2 (0.2-1.0) Ur Leukocyte Esterase Negative (Negative) Urine RBC 0-5 (0-5) /hpf Urine WBC 0-5 (0-5) /hpf Ur Epithelial Cells 0-5 (0-5) /hpf Urine Bacteria Many H (FEW) /hpf Urine Mucus Not seen (FEW) /hpf Ethyl Alcohol (0.00) gm% SARS-CoV-2 RNA (LORRIE) (NEGATIVE) 10/02/20 Range/Units 10:20 WBC (3.98-10.04) K/mm3 RBC (3.98-5.22) M/mm3 Hgb (11.2-15.7) gm/dl Hct (34.1-44.9) % MCV (79.4-94.8) fl MCH (25.6-32.2) pg MCHC (32.2-35.5) g/dl RDW Std Deviation (36.4-46.3) fL Plt Count (182-369) K/mm3 MPV (9.4-12.3) fl Neut % (Auto) (34.0-71.1) % Lymph % (Auto) (19.3-51.7) % [place] % (Auto) (4.7-12.5) % Eos % (Auto) (0.7-5.8) Baso % (Auto) (0.1-1.2) % Neut # (Auto) (1.56-6.13) K/mm3 Lymph # (Auto) (1.18-3.74) K/mm3 [place] # (Auto) (0.24-0.36) K/mm3 Eos # (Auto) (0.04-0.36) K/mm3 Baso # (Auto) (0.01-0.08) K/mm3 PT (9.7-12.0) SECONDS INR APTT (21.7-31.4) SECONDS Sodium (136-145) mEq/L Potassium (3.5-5.1) mEq/L Chloride (98-107) mEq/L Carbon Dioxide (21-32) mEq/L Anion Gap (5-15) BUN (7-18) mg/dL Creatinine (0.55-1.02) mg/dL Est Cr Clr Drug Dosing mL/min Estimated GFR (MDRD) (>60) mL/min BUN/Creatinine Ratio (14-18) Glucose (70-99) mg/dL Lactic Acid (0.4-2.0) mmol/L Calcium (8.5-10.1) mg/dL Magnesium (1.8-2.4) mg/dL Total Bilirubin (0.2-1.0) mg/dL AST (15-37) U/L ALT (14-59) U/L Alkaline Phosphatase (46-116) U/L Troponin I (0.00-0.056) ng/mL C-Reactive Protein (<1.0) mg/dL NT-Pro-B Natriuret Pep (0-450) pg/mL Total Protein (6.4-8.2) g/dl Albumin (3.4-5.0) g/dl Globulin gm/dL Albumin/Globulin Ratio (1-2) Urine Color (Yellow) Urine Appearance (Clear) Urine pH (5.0-8.0) Ur Specific Dudley (1.005-1.030) Urine Protein (Negative) Urine Glucose (UA) (Negative) Urine Ketones (Negative) Urine Occult Blood (Negative) Urine Nitrite (Negative) Urine Bilirubin (Negative) Urine Urobilinogen (0.2-1.0) Ur Leukocyte Esterase (Negative) Urine RBC (0-5) /hpf Urine WBC (0-5) /hpf Ur Epithelial Cells (0-5) /hpf Urine Bacteria (FEW) /hpf Urine Mucus (FEW) /hpf Ethyl Alcohol (0.00) gm% SARS-CoV-2 RNA (LORRIE) Negative (NEGATIVE) Result Diagrams: 10/02/20 09:44 10/02/20 09:44 Imaging Impressions Last 24 hrs: Please see official reports. Multiple posterior embolic events noted on CT and MRI of brain. #1 Interpretation EKG Date: 10/02/20 Rhythm: NSR P-Wave: Present QRS: Normal ST-T: Normal QT: Normal Comparison: NA - No Prior EKG Sepsis Event Note - Evaluation Sepsis Screening Result: No Definite Risk - Focused Exam Vital Signs: Vital Signs Temp Pulse Resp BP 10/02/20 09:04 97.4 F 87 18 158/91 H Problem List Initiated/Reviewed/Updated: Yes Orders Last 24hrs: Active Orders 24 hr Category Date Time Status Admission Status [Patient Status] [ADT] Routine ADT 10/02/20 13:18 Active Patient Status [ADT] Routine ADT 10/02/20 13:18 Active Antiembolic Devices [RC] PER UNIT ROUTINE Care 10/02/20 13:20 Active Cardiac Monitoring [RC] CONTINUOUS Care 10/02/20 13:19 Active EKG Documentation Completion [RC] STAT Care 10/02/20 09:07 Active Oxygen Therapy [RC] PRN Care 10/02/20 13:18 Active Peripheral IV Care [RC] . DIRECTED Care 10/02/20 13:24 Ordered Up With Assistance [RC] ASDIRECTED Care 10/02/20 13:18 Active VTE/DVT Education [RC] PER UNIT ROUTINE Care 10/02/20 13:18 Active VTE/DVT Education [RC] PER UNIT ROUTINE Care 10/02/20 13:22 Ordered Vital Signs [RC] Q4H Care 10/02/20 13:18 Active OT Evaluation and Treatment [CONS] Routine Cons 10/02/20 13:18 Active PT Evaluation and Treatment [CONS] Routine Cons 10/02/20 13:18 Active FIELD MARKETING COORDINATOR Evaluation and Treatment [CONS] Routine Cons 10/02/20 13:18 Active BASIC METABOLIC PANEL,BMP [CHEM] AM Lab 10/03/20 05:11 Ordered CBC WITH AUTO DIFF [HEME] AM Lab 10/03/20 05:11 Ordered CULTURE BLOOD [BC] Stat Lab 10/02/20 09:44 Received CULTURE BLOOD [BC] Stat Lab 10/02/20 09:53 Received LIPID PANEL [CHEM] Routine Lab 10/02/20 13:24 Ordered Acetaminophen [TylenoL] Med 10/02/20 13:22 Ordered 650 mg PO Q4H PRN Aspirin Med 10/03/20 09:00 Ordered 81 mg PO DAILY Clopidogrel [Plavix] Med 10/03/20 09:00 Ordered 75 mg PO DAILY Dextrose 5%-0.9% NaCl [Dextrose 5%-Normal Saline] 1,000 Med 10/02/20 11:00 Active ml IV ASDIRECTED Docusate Sodium [Colace] Med 10/02/20 13:22 Ordered 100 mg PO BID PRN Heparin Sodium Med 10/02/20 13:30 Ordered 5,000 units SUBCUT Q8H Ondansetron [Zofran ODT] Med 10/02/20 13:22 Ordered 4 mg PO Q4H PRN Ondansetron [Zofran] Med 10/02/20 13:22 Ordered 4 mg IV Q4H PRN Sodium Chloride 0.9% [Saline Flush] Med 10/02/20 13:22 Ordered 10 ml FLUSH ASDIRECTED PRN atorvaSTATin [Lipitor] Med 10/02/20 21:00 Ordered 40 mg PO BEDTIME Blood Culture x2 Reflex Set [OM.PC] Stat Oth 10/02/20 09:08 Ordered Peripheral IV Insertion Adult [OM.PC] Routine Oth 10/02/20 13:22 Ordered Saline Lock Insert [OM.PC] Routine Oth 10/02/20 13:22 Ordered Sequential Compression Device [OM.PC] Per Unit Routine Oth 10/02/20 13:20 Ordered Resuscitation Status Routine Resus Stat 10/02/20 13:18 Ordered Medication Orders Acetaminophen (Acetaminophen 325 Mg Tab) 650 mg PO Q4H PRN PRN Reason: Pain (Mild 1-3)/fever Aspirin (Aspirin 81 Mg Tab.Chew) 81 mg PO DAILY HERMINIO Atorvastatin Calcium (Atorvastatin 40 Mg Tab) 40 mg PO BEDTIME HERMINIO Clopidogrel Bisulfate (Clopidogrel 75 Mg Tab) 75 mg PO DAILY HERMINIO Docusate Sodium (Docusate Sodium 100 Mg Cap) 100 mg PO BID PRN PRN Reason: Constipation Heparin Sodium (Porcine) (Heparin Sodium 5,000 Units/Ml Vial) 5,000 units SUBCUT Q8H [facility] Dextrose/Sodium Chloride (Dextrose 5%-Normal Saline) 1,000 mls @ 75 mls/hr IV ASDIRECTED [facility] Ondansetron HCl (Ondansetron 4 Mg Tab.Dis) 4 mg PO Q4H PRN PRN Reason: nausea, able to take PO Ondansetron HCl (Ondansetron 4 Mg/2 Ml Sdv) 4 mg IV Q4H PRN PRN Reason: Nausea/Vomiting Sodium Chloride (Sodium Chloride 0.9% 10 Ml Syringe) 10 ml FLUSH ASDIRECTED PRN PRN Reason: Keep Vein Open Assessment/Plan Comment:: 1. Acute CVA. Multiple posterior circulation embolic events. Admit to the internal medicine service for further management. Initiate aspirin and Plavix. Initiate Lipitor 40 mg daily. Check lipid panel. We will defer A1c testing due to advanced age. In accordance with family wishes, will not pursue further work-up including echocardiogram with bubble study or carotid imaging. Swallow evaluation by nursing and speech therapy. N.p.o. until deemed capable of swallowing without high risk of aspiration. Allow for permissive hypertension over the next 24 hours. Case management and social work consult regarding likely disposition to [facility] facility. 2. Increased troponin. Likely secondary to acute CVAs. This was discussed with the patient's family, troponin most likely due to acute stroke and not due to an acute heart attack. Will not anticoagulate further beyond dual antiplatelet therapy as per family. No cardiac work-up will be pursued according to family wishes 3. Dementia. Appears to be quite advanced. Patient will likely need a sitter. CODE STATUS: Full code. DVT prophylaxis with heparin and SCDs.
[2020-10-02] MEDS: Heparin Sodium 5,000 Units/ML Vial SUBCUT SCH ×2 (15:12→22:30)
[2020-10-02] MEDS: Dextrose 5%-0.9% NaCl 1,000 ML IV SCH (22:30)
[2020-10-02] MEDS: atorvaSTATin 40 MG Tab PO SCH (22:30)
--- NOTE | 2020-10-03 08:04 | PCM.PN ---
- General Info Date of Service: 10/03/20 Admission Dx/Problem (Free Text): Admission Diagnosis/Problem Admission Diagnosis/Problem Cerebrovascular accident Subjective Update: No acute events overnight. No new nursing concerns. Patient's baseline dementia prevented consistent telemetry monitoring. Patient feisty at times but not a disruption to her own care or aggressive toward nursing. - Patient Data Vitals - Most Recent: Last Vital Signs Temp 99.1 F 10/03/20 05:04 Pulse 81 10/03/20 05:04 Resp 12 10/03/20 05:04 BP 163/72 H 10/03/20 05:04 Pulse Ox 96 10/03/20 05:04 Weight - Most Recent: 143 lb 4.8 oz I&O - Last 24 Hours: Intake & Output 10/02/20 10/03/20 10/03/20 22:59 06:59 14:59 Intake Total 0 961 Output Total 1100 Balance 0 -139 Lab Results Last 24 Hours: Laboratory Results - last 24 hr 10/02/20 10/02/20 10/02/20 Range/Units 09:44 09:44 09:44 WBC 6.52 (3.98-10.04) K/mm3 RBC 3.96 L (3.98-5.22) M/mm3 Hgb 11.9 (11.2-15.7) gm/dl Hct 36.6 (34.1-44.9) % MCV 92.4 (79.4-94.8) fl MCH 30.1 (25.6-32.2) pg MCHC 32.5 (32.2-35.5) g/dl RDW Std Deviation 47.2 H (36.4-46.3) fL Plt Count 282 (182-369) K/mm3 MPV 10.1 (9.4-12.3) fl Neut % (Auto) 79.5 H (34.0-71.1) % Lymph % (Auto) 10.6 L (19.3-51.7) % Bureau % (Auto) 9.2 (4.7-12.5) % Eos % (Auto) 0.2 L (0.7-5.8) Baso % (Auto) 0.3 (0.1-1.2) % Neut # (Auto) 5.19 (1.56-6.13) K/mm3 Lymph # (Auto) 0.69 L (1.18-3.74) K/mm3 Bureau # (Auto) 0.60 H (0.24-0.36) K/mm3 Eos # (Auto) 0.01 L (0.04-0.36) K/mm3 Baso # (Auto) 0.02 (0.01-0.08) K/mm3 PT 10.3 (9.7-12.0) SECONDS INR 0.96 APTT 25.4 (21.7-31.4) SECONDS Sodium 142 (136-145) mEq/L Potassium 3.8 (3.5-5.1) mEq/L Chloride 105 (98-107) mEq/L Carbon Dioxide 25 (21-32) mEq/L Anion Gap 15.8 H (5-15) BUN 21 H (7-18) mg/dL Creatinine 1.3 H (0.55-1.02) mg/dL Est Cr Clr Drug Dosing 21.90 mL/min Estimated GFR (MDRD) 39 (>60) mL/min BUN/Creatinine Ratio 16.2 (14-18) Glucose 102 H (70-99) mg/dL Lactic Acid (0.4-2.0) mmol/L Calcium 8.6 (8.5-10.1) mg/dL Magnesium 2.1 (1.8-2.4) mg/dL Total Bilirubin 0.4 (0.2-1.0) mg/dL AST 19 (15-37) U/L ALT 19 (14-59) U/L Alkaline Phosphatase 72 (46-116) U/L Troponin I 0.082 H* (0.00-0.056) ng/mL C-Reactive Protein 0.5 (<1.0) mg/dL NT-Pro-B Natriuret Pep (0-450) pg/mL Total Protein 7.0 (6.4-8.2) g/dl Albumin 3.5 (3.4-5.0) g/dl Globulin 3.5 gm/dL Albumin/Globulin Ratio 1.0 (1-2) Triglycerides (<150) mg/dL Cholesterol (<200) mg/dL LDL Cholesterol Direct (<100) mg/dL HDL Cholesterol (40-59) mg/dL Urine Color (Yellow) Urine Appearance (Clear) Urine pH (5.0-8.0) Ur Specific [place] (1.005-1.030) Urine Protein (Negative) Urine Glucose (UA) (Negative) Urine Ketones (Negative) Urine Occult Blood (Negative) Urine Nitrite (Negative) Urine Bilirubin (Negative) Urine Urobilinogen (0.2-1.0) Ur Leukocyte Esterase (Negative) Urine RBC (0-5) /hpf Urine WBC (0-5) /hpf Ur Epithelial Cells (0-5) /hpf Ur Squamous Epith Cells (0-5) /hpf Urine Bacteria (FEW) /hpf Urine Mucus (FEW) /hpf Ethyl Alcohol 0.00 (0.00) gm% SARS-CoV-2 RNA ([facility]) (NEGATIVE) 10/02/20 10/02/20 10/02/20 Range/Units 09:44 09:44 09:44 WBC (3.98-10.04) K/mm3 RBC (3.98-5.22) M/mm3 Hgb (11.2-15.7) gm/dl Hct (34.1-44.9) % MCV (79.4-94.8) fl MCH (25.6-32.2) pg MCHC (32.2-35.5) g/dl RDW Std Deviation (36.4-46.3) fL Plt Count (182-369) K/mm3 MPV (9.4-12.3) fl Neut % (Auto) (34.0-71.1) % Lymph % (Auto) (19.3-51.7) % Bureau % (Auto) (4.7-12.5) % Eos % (Auto) (0.7-5.8) Baso % (Auto) (0.1-1.2) % Neut # (Auto) (1.56-6.13) K/mm3 Lymph # (Auto) (1.18-3.74) K/mm3 Bureau # (Auto) (0.24-0.36) K/mm3 Eos # (Auto) (0.04-0.36) K/mm3 Baso # (Auto) (0.01-0.08) K/mm3 PT (9.7-12.0) SECONDS INR APTT (21.7-31.4) SECONDS Sodium (136-145) mEq/L Potassium (3.5-5.1) mEq/L Chloride (98-107) mEq/L Carbon Dioxide (21-32) mEq/L Anion Gap (5-15) BUN (7-18) mg/dL Creatinine (0.55-1.02) mg/dL Est Cr Clr Drug Dosing mL/min Estimated GFR (MDRD) (>60) mL/min BUN/Creatinine Ratio (14-18) Glucose (70-99) mg/dL Lactic Acid 0.8 (0.4-2.0) mmol/L Calcium (8.5-10.1) mg/dL Magnesium (1.8-2.4) mg/dL Total Bilirubin (0.2-1.0) mg/dL AST (15-37) U/L ALT (14-59) U/L Alkaline Phosphatase (46-116) U/L Troponin I (0.00-0.056) ng/mL C-Reactive Protein (<1.0) mg/dL NT-Pro-B Natriuret Pep 2262 H (0-450) pg/mL Total Protein (6.4-8.2) g/dl Albumin (3.4-5.0) g/dl Globulin gm/dL Albumin/Globulin Ratio (1-2) Triglycerides 75 (<150) mg/dL Cholesterol 256 H (<200) mg/dL LDL Cholesterol Direct 152 H* (<100) mg/dL HDL Cholesterol 77.0 H (40-59) mg/dL Urine Color (Yellow) Urine Appearance (Clear) Urine pH (5.0-8.0) Ur Specific [place] (1.005-1.030) Urine Protein (Negative) Urine Glucose (UA) (Negative) Urine Ketones (Negative) Urine Occult Blood (Negative) Urine Nitrite (Negative) Urine Bilirubin (Negative) Urine Urobilinogen (0.2-1.0) Ur Leukocyte Esterase (Negative) Urine RBC (0-5) /hpf Urine WBC (0-5) /hpf Ur Epithelial Cells (0-5) /hpf Ur Squamous Epith Cells (0-5) /hpf Urine Bacteria (FEW) /hpf Urine Mucus (FEW) /hpf Ethyl Alcohol (0.00) gm% SARS-CoV-2 RNA ([place]) (NEGATIVE) 10/02/20 10/02/20 10/02/20 Range/Units 10:20 10:20 14:30 WBC (3.98-10.04) K/mm3 RBC (3.98-5.22) M/mm3 Hgb (11.2-15.7) gm/dl Hct (34.1-44.9) % MCV (79.4-94.8) fl MCH (25.6-32.2) pg MCHC (32.2-35.5) g/dl RDW Std Deviation (36.4-46.3) fL Plt Count (182-369) K/mm3 MPV (9.4-12.3) fl Neut % (Auto) (34.0-71.1) % Lymph % (Auto) (19.3-51.7) % Bureau % (Auto) (4.7-12.5) % Eos % (Auto) (0.7-5.8) Baso % (Auto) (0.1-1.2) % Neut # (Auto) (1.56-6.13) K/mm3 Lymph # (Auto) (1.18-3.74) K/mm3 Bureau # (Auto) (0.24-0.36) K/mm3 Eos # (Auto) (0.04-0.36) K/mm3 Baso # (Auto) (0.01-0.08) K/mm3 PT (9.7-12.0) SECONDS INR APTT (21.7-31.4) SECONDS Sodium (136-145) mEq/L Potassium (3.5-5.1) mEq/L Chloride (98-107) mEq/L Carbon Dioxide (21-32) mEq/L Anion Gap (5-15) BUN (7-18) mg/dL Creatinine (0.55-1.02) mg/dL Est Cr Clr Drug Dosing mL/min Estimated GFR (MDRD) (>60) mL/min BUN/Creatinine Ratio (14-18) Glucose (70-99) mg/dL Lactic Acid (0.4-2.0) mmol/L Calcium (8.5-10.1) mg/dL Magnesium (1.8-2.4) mg/dL Total Bilirubin (0.2-1.0) mg/dL AST (15-37) U/L ALT (14-59) U/L Alkaline Phosphatase (46-116) U/L Troponin I (0.00-0.056) ng/mL C-Reactive Protein (<1.0) mg/dL NT-Pro-B Natriuret Pep (0-450) pg/mL Total Protein (6.4-8.2) g/dl Albumin (3.4-5.0) g/dl Globulin gm/dL Albumin/Globulin Ratio (1-2) Triglycerides (<150) mg/dL Cholesterol (<200) mg/dL LDL Cholesterol Direct (<100) mg/dL HDL Cholesterol (40-59) mg/dL Urine Color Yellow Yellow (Yellow) Urine Appearance Clear Clear (Clear) Urine pH 6.0 7.0 (5.0-8.0) Ur Specific [place] 1.025 1.020 (1.005-1.030) Urine Protein Negative Negative (Negative) Urine Glucose (UA) Negative Negative (Negative) Urine Ketones Negative Negative (Negative) Urine Occult Blood Trace-intact H 1+ H (Negative) Urine Nitrite Positive H Negative (Negative) Urine Bilirubin Negative Negative (Negative) Urine Urobilinogen 0.2 0.2 (0.2-1.0) Ur Leukocyte Esterase Negative Negative (Negative) Urine RBC 0-5 0-5 (0-5) /hpf Urine WBC 0-5 0-5 (0-5) /hpf Ur Epithelial Cells 0-5 (0-5) /hpf Ur Squamous Epith Cells 0-5 (0-5) /hpf Urine Bacteria Many H Moderate H (FEW) /hpf Urine Mucus Not seen Not seen (FEW) /hpf Ethyl Alcohol (0.00) gm% SARS-CoV-2 RNA ([place]) Negative (NEGATIVE) 10/03/20 10/03/20 Range/Units 05:11 06:25 WBC 4.94 (3.98-10.04) K/mm3 RBC 3.91 L (3.98-5.22) M/mm3 Hgb 11.5 (11.2-15.7) gm/dl Hct 36.3 (34.1-44.9) % MCV 92.8 (79.4-94.8) fl MCH 29.4 (25.6-32.2) pg MCHC 31.7 L (32.2-35.5) g/dl RDW Std Deviation 47.2 H (36.4-46.3) fL Plt Count 263 (182-369) K/mm3 MPV 10.2 (9.4-12.3) fl Neut % (Auto) 72.1 H (34.0-71.1) % Lymph % (Auto) 14.8 L (19.3-51.7) % Bureau % (Auto) 12.1 (4.7-12.5) % Eos % (Auto) 0.6 L (0.7-5.8) Baso % (Auto) 0.4 (0.1-1.2) % Neut # (Auto) 3.56 (1.56-6.13) K/mm3 Lymph # (Auto) 0.73 L (1.18-3.74) K/mm3 Bureau # (Auto) 0.60 H (0.24-0.36) K/mm3 Eos # (Auto) 0.03 L (0.04-0.36) K/mm3 Baso # (Auto) 0.02 (0.01-0.08) K/mm3 PT (9.7-12.0) SECONDS INR APTT (21.7-31.4) SECONDS Sodium 144 (136-145) mEq/L Potassium 3.3 L (3.5-5.1) mEq/L Chloride 109 H (98-107) mEq/L Carbon Dioxide 26 (21-32) mEq/L Anion Gap 12.3 (5-15) BUN 17 (7-18) mg/dL Creatinine 1.1 H (0.55-1.02) mg/dL Est Cr Clr Drug Dosing 36.97 mL/min Estimated GFR (MDRD) 47 (>60) mL/min BUN/Creatinine Ratio 15.5 (14-18) Glucose 108 H (70-99) mg/dL Lactic Acid (0.4-2.0) mmol/L Calcium 8.1 L (8.5-10.1) mg/dL Magnesium (1.8-2.4) mg/dL Total Bilirubin (0.2-1.0) mg/dL AST (15-37) U/L ALT (14-59) U/L Alkaline Phosphatase (46-116) U/L Troponin I (0.00-0.056) ng/mL C-Reactive Protein (<1.0) mg/dL NT-Pro-B Natriuret Pep (0-450) pg/mL Total Protein (6.4-8.2) g/dl Albumin (3.4-5.0) g/dl Globulin gm/dL Albumin/Globulin Ratio (1-2) Triglycerides (<150) mg/dL Cholesterol (<200) mg/dL LDL Cholesterol Direct (<100) mg/dL HDL Cholesterol (40-59) mg/dL Urine Color (Yellow) Urine Appearance (Clear) Urine pH (5.0-8.0) Ur Specific [place] (1.005-1.030) Urine Protein (Negative) Urine Glucose (UA) (Negative) Urine Ketones (Negative) Urine Occult Blood (Negative) Urine Nitrite (Negative) Urine Bilirubin (Negative) Urine Urobilinogen (0.2-1.0) Ur Leukocyte Esterase (Negative) Urine RBC (0-5) /hpf Urine WBC (0-5) /hpf Ur Epithelial Cells (0-5) /hpf Ur Squamous Epith Cells (0-5) /hpf Urine Bacteria (FEW) /hpf Urine Mucus (FEW) /hpf Ethyl Alcohol (0.00) gm% SARS-CoV-2 RNA ([place]) (NEGATIVE) Med Orders - Current: Current Medications Acetaminophen (Acetaminophen 325 Mg Tab) 650 mg PO Q4H PRN PRN Reason: Pain (Mild 1-3)/fever Aspirin (Aspirin 81 Mg Tab.Chew) 81 mg PO DAILY [facility] Atorvastatin Calcium (Atorvastatin 40 Mg Tab) 40 mg PO BEDTIME [facility] Last Admin: 10/02/20 22:30 Dose: 40 mg Documented by: Clopidogrel Bisulfate (Clopidogrel 75 Mg Tab) 75 mg PO DAILY [facility] Docusate Sodium (Docusate Sodium 100 Mg Cap) 100 mg PO BID PRN PRN Reason: Constipation Heparin Sodium (Porcine) (Heparin Sodium 5,000 Units/Ml Vial) 5,000 units SUBCUT Q8H [facility] Last Admin: 10/02/20 22:30 Dose: 5,000 units Documented by: Dextrose/Sodium Chloride (Dextrose 5%-Normal Saline) 1,000 mls @ 75 mls/hr IV ASDIRECTED [facility] Last Admin: 10/02/20 22:30 Dose: 75 mls/hr Documented by: Ondansetron HCl (Ondansetron 4 Mg Tab.Dis) 4 mg PO Q4H PRN PRN Reason: nausea, able to take PO Ondansetron HCl (Ondansetron 4 Mg/2 Ml Sdv) 4 mg IV Q4H PRN PRN Reason: Nausea/Vomiting Sodium Chloride (Sodium Chloride 0.9% 10 Ml Syringe) 10 ml FLUSH ASDIRECTED PRN PRN Reason: Keep Vein Open Discontinued Medications Aspirin (Aspirin 81 Mg Tab.Chew) 324 mg PO ONETIME ONE Stop: 10/02/20 12:33 Last Admin: 10/02/20 13:46 Dose: 324 mg Documented by: Clopidogrel Bisulfate (Clopidogrel 75 Mg Tab) 75 mg PO ONETIME ONE Stop: 10/02/20 12:34 Last Admin: 10/02/20 13:46 Dose: 75 mg Documented by: Furosemide (Furosemide 40 Mg/4 Ml Vial) 40 mg IVPUSH NOW ONE Stop: 10/02/20 10:49 Last Admin: 10/02/20 11:30 Dose: 40 mg Documented by: Dextrose/Sodium Chloride (Dextrose 5%-Normal Saline) 1,000 mls @ 250 mls/hr IV ASDIRECTED [facility] Last Admin: 10/02/20 10:07 Dose: 250 mls/hr Documented by: Metoclopramide HCl (Metoclopramide 10 Mg/2 Ml Sdv) 5 mg IVPUSH ONETIME ONE Stop: 10/02/20 09:08 Last Admin: 10/02/20 10:06 Dose: 5 mg Documented by: - Exam General: Alert, Cooperative. No: Oriented HEENT: Pupils Equal Neck: Supple Lungs: Clear to Auscultation, Normal Respiratory Effort Cardiovascular: Regular Rate GI/Abdominal Exam: Normal Bowel Sounds, Soft, Non-Tender, No Distention Extremities: Normal Inspection, No Pedal Edema Skin: Warm, Dry Neurological: No New Focal Deficit Psy/Mental Status: Alert - Patient Data Lab Results Last 24 hrs: Laboratory Results - last 24 hr 10/02/20 10/02/20 10/02/20 Range/Units 09:44 09:44 09:44 WBC 6.52 (3.98-10.04) K/mm3 RBC 3.96 L (3.98-5.22) M/mm3 Hgb 11.9 (11.2-15.7) gm/dl Hct 36.6 (34.1-44.9) % MCV 92.4 (79.4-94.8) fl MCH 30.1 (25.6-32.2) pg MCHC 32.5 (32.2-35.5) g/dl RDW Std Deviation 47.2 H (36.4-46.3) fL Plt Count 282 (182-369) K/mm3 MPV 10.1 (9.4-12.3) fl Neut % (Auto) 79.5 H (34.0-71.1) % Lymph % (Auto) 10.6 L (19.3-51.7) % Bureau % (Auto) 9.2 (4.7-12.5) % Eos % (Auto) 0.2 L (0.7-5.8) Baso % (Auto) 0.3 (0.1-1.2) % Neut # (Auto) 5.19 (1.56-6.13) K/mm3 Lymph # (Auto) 0.69 L (1.18-3.74) K/mm3 Bureau # (Auto) 0.60 H (0.24-0.36) K/mm3 Eos # (Auto) 0.01 L (0.04-0.36) K/mm3 Baso # (Auto) 0.02 (0.01-0.08) K/mm3 PT 10.3 (9.7-12.0) SECONDS INR 0.96 APTT 25.4 (21.7-31.4) SECONDS Sodium 142 (136-145) mEq/L Potassium 3.8 (3.5-5.1) mEq/L Chloride 105 (98-107) mEq/L Carbon Dioxide 25 (21-32) mEq/L Anion Gap 15.8 H (5-15) BUN 21 H (7-18) mg/dL Creatinine 1.3 H (0.55-1.02) mg/dL Est Cr Clr Drug Dosing 21.90 mL/min Estimated GFR (MDRD) 39 (>60) mL/min BUN/Creatinine Ratio 16.2 (14-18) Glucose 102 H (70-99) mg/dL Lactic Acid (0.4-2.0) mmol/L Calcium 8.6 (8.5-10.1) mg/dL Magnesium 2.1 (1.8-2.4) mg/dL Total Bilirubin 0.4 (0.2-1.0) mg/dL AST 19 (15-37) U/L ALT 19 (14-59) U/L Alkaline Phosphatase 72 (46-116) U/L Troponin I 0.082 H* (0.00-0.056) ng/mL C-Reactive Protein 0.5 (<1.0) mg/dL NT-Pro-B Natriuret Pep (0-450) pg/mL Total Protein 7.0 (6.4-8.2) g/dl Albumin 3.5 (3.4-5.0) g/dl Globulin 3.5 gm/dL Albumin/Globulin Ratio 1.0 (1-2) Triglycerides (<150) mg/dL Cholesterol (<200) mg/dL LDL Cholesterol Direct (<100) mg/dL HDL Cholesterol (40-59) mg/dL Urine Color (Yellow) Urine Appearance (Clear) Urine pH (5.0-8.0) Ur Specific [place] (1.005-1.030) Urine Protein (Negative) Urine Glucose (UA) (Negative) Urine Ketones (Negative) Urine Occult Blood (Negative) Urine Nitrite (Negative) Urine Bilirubin (Negative) Urine Urobilinogen (0.2-1.0) Ur Leukocyte Esterase (Negative) Urine RBC (0-5) /hpf Urine WBC (0-5) /hpf Ur Epithelial Cells (0-5) /hpf Ur Squamous Epith Cells (0-5) /hpf Urine Bacteria (FEW) /hpf Urine Mucus (FEW) /hpf Ethyl Alcohol 0.00 (0.00) gm% SARS-CoV-2 RNA ([place]) (NEGATIVE) 10/02/20 10/02/20 10/02/20 Range/Units 09:44 09:44 09:44 WBC (3.98-10.04) K/mm3 RBC (3.98-5.22) M/mm3 Hgb (11.2-15.7) gm/dl Hct (34.1-44.9) % MCV (79.4-94.8) fl MCH (25.6-32.2) pg MCHC (32.2-35.5) g/dl RDW Std Deviation (36.4-46.3) fL Plt Count (182-369) K/mm3 MPV (9.4-12.3) fl Neut % (Auto) (34.0-71.1) % Lymph % (Auto) (19.3-51.7) % Bureau % (Auto) (4.7-12.5) % Eos % (Auto) (0.7-5.8) Baso % (Auto) (0.1-1.2) % Neut # (Auto) (1.56-6.13) K/mm3 Lymph # (Auto) (1.18-3.74) K/mm3 Bureau # (Auto) (0.24-0.36) K/mm3 Eos # (Auto) (0.04-0.36) K/mm3 Baso # (Auto) (0.01-0.08) K/mm3 PT (9.7-12.0) SECONDS INR APTT (21.7-31.4) SECONDS Sodium (136-145) mEq/L Potassium (3.5-5.1) mEq/L Chloride (98-107) mEq/L Carbon Dioxide (21-32) mEq/L Anion Gap (5-15) BUN (7-18) mg/dL Creatinine (0.55-1.02) mg/dL Est Cr Clr Drug Dosing mL/min Estimated GFR (MDRD) (>60) mL/min BUN/Creatinine Ratio (14-18) Glucose (70-99) mg/dL Lactic Acid 0.8 (0.4-2.0) mmol/L Calcium (8.5-10.1) mg/dL Magnesium (1.8-2.4) mg/dL Total Bilirubin (0.2-1.0) mg/dL AST (15-37) U/L ALT (14-59) U/L Alkaline Phosphatase (46-116) U/L Troponin I (0.00-0.056) ng/mL C-Reactive Protein (<1.0) mg/dL NT-Pro-B Natriuret Pep 2262 H (0-450) pg/mL Total Protein (6.4-8.2) g/dl Albumin (3.4-5.0) g/dl Globulin gm/dL Albumin/Globulin Ratio (1-2) Triglycerides 75 (<150) mg/dL Cholesterol 256 H (<200) mg/dL LDL Cholesterol Direct 152 H* (<100) mg/dL HDL Cholesterol 77.0 H (40-59) mg/dL Urine Color (Yellow) Urine Appearance (Clear) Urine pH (5.0-8.0) Ur Specific [place] (1.005-1.030) Urine Protein (Negative) Urine Glucose (UA) (Negative) Urine Ketones (Negative) Urine Occult Blood (Negative) Urine Nitrite (Negative) Urine Bilirubin (Negative) Urine Urobilinogen (0.2-1.0) Ur Leukocyte Esterase (Negative) Urine RBC (0-5) /hpf Urine WBC (0-5) /hpf Ur Epithelial Cells (0-5) /hpf Ur Squamous Epith Cells (0-5) /hpf Urine Bacteria (FEW) /hpf Urine Mucus (FEW) /hpf Ethyl Alcohol (0.00) gm% SARS-CoV-2 RNA ([place]) (NEGATIVE) 10/02/20 10/02/20 10/02/20 Range/Units 10:20 10:20 14:30 WBC (3.98-10.04) K/mm3 RBC (3.98-5.22) M/mm3 Hgb (11.2-15.7) gm/dl Hct (34.1-44.9) % MCV (79.4-94.8) fl MCH (25.6-32.2) pg MCHC (32.2-35.5) g/dl RDW Std Deviation (36.4-46.3) fL Plt Count (182-369) K/mm3 MPV (9.4-12.3) fl Neut % (Auto) (34.0-71.1) % Lymph % (Auto) (19.3-51.7) % Bureau % (Auto) (4.7-12.5) % Eos % (Auto) (0.7-5.8) Baso % (Auto) (0.1-1.2) % Neut # (Auto) (1.56-6.13) K/mm3 Lymph # (Auto) (1.18-3.74) K/mm3 Bureau # (Auto) (0.24-0.36) K/mm3 Eos # (Auto) (0.04-0.36) K/mm3 Baso # (Auto) (0.01-0.08) K/mm3 PT (9.7-12.0) SECONDS INR APTT (21.7-31.4) SECONDS Sodium (136-145) mEq/L Potassium (3.5-5.1) mEq/L Chloride (98-107) mEq/L Carbon Dioxide (21-32) mEq/L Anion Gap (5-15) BUN (7-18) mg/dL Creatinine (0.55-1.02) mg/dL Est Cr Clr Drug Dosing mL/min Estimated GFR (MDRD) (>60) mL/min BUN/Creatinine Ratio (14-18) Glucose (70-99) mg/dL Lactic Acid (0.4-2.0) mmol/L Calcium (8.5-10.1) mg/dL Magnesium (1.8-2.4) mg/dL Total Bilirubin (0.2-1.0) mg/dL AST (15-37) U/L ALT (14-59) U/L Alkaline Phosphatase (46-116) U/L Troponin I (0.00-0.056) ng/mL C-Reactive Protein (<1.0) mg/dL NT-Pro-B Natriuret Pep (0-450) pg/mL Total Protein (6.4-8.2) g/dl Albumin (3.4-5.0) g/dl Globulin gm/dL Albumin/Globulin Ratio (1-2) Triglycerides (<150) mg/dL Cholesterol (<200) mg/dL LDL Cholesterol Direct (<100) mg/dL HDL Cholesterol (40-59) mg/dL Urine Color Yellow Yellow (Yellow) Urine Appearance Clear Clear (Clear) Urine pH 6.0 7.0 (5.0-8.0) Ur Specific [place] 1.025 1.020 (1.005-1.030) Urine Protein Negative Negative (Negative) Urine Glucose (UA) Negative Negative (Negative) Urine Ketones Negative Negative (Negative) Urine Occult Blood Trace-intact H 1+ H (Negative) Urine Nitrite Positive H Negative (Negative) Urine Bilirubin Negative Negative (Negative) Urine Urobilinogen 0.2 0.2 (0.2-1.0) Ur Leukocyte Esterase Negative Negative (Negative) Urine RBC 0-5 0-5 (0-5) /hpf Urine WBC 0-5 0-5 (0-5) /hpf Ur Epithelial Cells 0-5 (0-5) /hpf Ur Squamous Epith Cells 0-5 (0-5) /hpf Urine Bacteria Many H Moderate H (FEW) /hpf Urine Mucus Not seen Not seen (FEW) /hpf Ethyl Alcohol (0.00) gm% SARS-CoV-2 RNA ([facility]) Negative (NEGATIVE) 10/03/20 10/03/20 Range/Units 05:11 06:25 WBC 4.94 (3.98-10.04) K/mm3 RBC 3.91 L (3.98-5.22) M/mm3 Hgb 11.5 (11.2-15.7) gm/dl Hct 36.3 (34.1-44.9) % MCV 92.8 (79.4-94.8) fl MCH 29.4 (25.6-32.2) pg MCHC 31.7 L (32.2-35.5) g/dl RDW Std Deviation 47.2 H (36.4-46.3) fL Plt Count 263 (182-369) K/mm3 MPV 10.2 (9.4-12.3) fl Neut % (Auto) 72.1 H (34.0-71.1) % Lymph % (Auto) 14.8 L (19.3-51.7) % Bureau % (Auto) 12.1 (4.7-12.5) % Eos % (Auto) 0.6 L (0.7-5.8) Baso % (Auto) 0.4 (0.1-1.2) % Neut # (Auto) 3.56 (1.56-6.13) K/mm3 Lymph # (Auto) 0.73 L (1.18-3.74) K/mm3 Bureau # (Auto) 0.60 H (0.24-0.36) K/mm3 Eos # (Auto) 0.03 L (0.04-0.36) K/mm3 Baso # (Auto) 0.02 (0.01-0.08) K/mm3 PT (9.7-12.0) SECONDS INR APTT (21.7-31.4) SECONDS Sodium 144 (136-145) mEq/L Potassium 3.3 L (3.5-5.1) mEq/L Chloride 109 H (98-107) mEq/L Carbon Dioxide 26 (21-32) mEq/L Anion Gap 12.3 (5-15) BUN 17 (7-18) mg/dL Creatinine 1.1 H (0.55-1.02) mg/dL Est Cr Clr Drug Dosing 36.97 mL/min Estimated GFR (MDRD) 47 (>60) mL/min BUN/Creatinine Ratio 15.5 (14-18) Glucose 108 H (70-99) mg/dL Lactic Acid (0.4-2.0) mmol/L Calcium 8.1 L (8.5-10.1) mg/dL Magnesium (1.8-2.4) mg/dL Total Bilirubin (0.2-1.0) mg/dL AST (15-37) U/L ALT (14-59) U/L Alkaline Phosphatase (46-116) U/L Troponin I (0.00-0.056) ng/mL C-Reactive Protein (<1.0) mg/dL NT-Pro-B Natriuret Pep (0-450) pg/mL Total Protein (6.4-8.2) g/dl Albumin (3.4-5.0) g/dl Globulin gm/dL Albumin/Globulin Ratio (1-2) Triglycerides (<150) mg/dL Cholesterol (<200) mg/dL LDL Cholesterol Direct (<100) mg/dL HDL Cholesterol (40-59) mg/dL Urine Color (Yellow) Urine Appearance (Clear) Urine pH (5.0-8.0) Ur Specific [place] (1.005-1.030) Urine Protein (Negative) Urine Glucose (UA) (Negative) Urine Ketones (Negative) Urine Occult Blood (Negative) Urine Nitrite (Negative) Urine Bilirubin (Negative) Urine Urobilinogen (0.2-1.0) Ur Leukocyte Esterase (Negative) Urine RBC (0-5) /hpf Urine WBC (0-5) /hpf Ur Epithelial Cells (0-5) /hpf Ur Squamous Epith Cells (0-5) /hpf Urine Bacteria (FEW) /hpf Urine Mucus (FEW) /hpf Ethyl Alcohol (0.00) gm% SARS-CoV-2 RNA ([facility]) (NEGATIVE) Result Diagrams: 10/03/20 06:25 10/03/20 05:11 Sepsis Event Note - Evaluation Sepsis Screening Result: No Definite Risk - Focused Exam Vital Signs: Vital Signs Temp Pulse Resp BP Pulse Ox 10/03/20 05:04 99.1 F 81 12 163/72 H 96 - Problem List Review Problem List Initiated/Reviewed/Updated: Yes - My Orders Last 24 Hours: My Active Orders 10/02/20 13:18 Patient Status [ADT] Routine Oxygen Therapy [RC] PRN Up With Assistance [RC] BID VTE/DVT Education [RC] DAILY Vital Signs [RC] Q4HR OT Evaluation and Treatment [CONS] Routine PT Evaluation and Treatment [CONS] Routine INSURANCE RISK MANAGER Evaluation and Treatment [CONS] Routine 10/02/20 13:20 Antiembolic Devices [RC] BID Sequential Compression Device [OM.PC] Per Unit Routine 10/02/20 13:22 Acetaminophen [TylenoL] 650 mg PO Q4H PRN Docusate Sodium [Colace] 100 mg PO BID PRN Ondansetron [Zofran ODT] 4 mg PO Q4H PRN Ondansetron [Zofran] 4 mg IV Q4H PRN Sodium Chloride 0.9% [Saline Flush] 10 ml FLUSH ASDIRECTED PRN Peripheral IV Insertion Adult [OM.PC] Routine Saline Lock Insert [OM.PC] Routine 10/02/20 13:24 Peripheral IV Care [RC] Q4HR 10/02/20 14:41 Consult to Case Management/Electric Meter Repairer Apprentice [CONS] Routine 10/02/20 15:00 Heparin Sodium 5,000 units SUBCUT Q8H 10/02/20 21:00 atorvaSTATin [Lipitor] 40 mg PO BEDTIME 10/03/20 02:52 Code Status [Resuscitation Status] Routine 10/03/20 Breakfast National Dysphagia Diet [DIET] 10/03/20 08:00 Potassium Chloride [KCl in Water 10 MEQ/100 ML] 10 meq Premix Bag 1 bag IV ONETIME 10/03/20 09:00 Aspirin 81 mg PO DAILY Clopidogrel [Plavix] 75 mg PO DAILY - Assessment Assessment:: 1. Multiple foci of posterior embolic CVA's 2. Dementia 3. CKD stage III 4. Hypokalemia 5. Hyperlipidemia - Plan Plan:: 1. Acute CVA. Multiple posterior circulation embolic events. Admitted to the internal medicine service for further management. Initiated aspirin and Plavix. Continue Lipitor 40 mg daily. Lipid Panel notable for multiple abnormalities Deferred A1c testing due to advanced age. In accordance with family wishes, will not pursue further work-up including echocardiogram with bubble study or carotid imaging. Swallow evaluation by nursing and speech therapy concluded that she requires multiple requirements to help prevent aspiration events. Diet restrictions have been ordered Case management and social work consult regarding likely disposition to longterm facility. 2. Increased troponin. Likely secondary to acute CVAs. This was discussed with the patient's family, troponin most likely due to acute stroke and not due to an acute heart attack. Will not anticoagulate further beyond dual antiplatelet therapy as per family. No cardiac work-up will be pursued according to family wishes 3. Dementia. Appears to be quite advanced. Patient will likely need a sitter. 4. CKD stage III. Avoid nephrotoxins. Replace electrolytes as necessary. 5. Hypokalemia. Mild. K+ riders with intermittent laboratory checks. Continue to replace as needed. CODE STATUS: DNR/DNI DVT prophylaxis with heparin and SCDs.
[2020-10-03] MEDS: Potassium Chloride 10 MEQ in Premix Bag 1 BAG IV SCH ×4 (08:31→12:58)
[2020-10-03] MEDS: Aspirin 81 MG Tab.Chew PO SCH (09:06)
[2020-10-03] MEDS: Clopidogrel 75 MG Tab PO SCH (09:06)
[2020-10-03] MEDS: Heparin Sodium 5,000 Units/ML Vial SUBCUT SCH ×3 (09:07→23:26)
[2020-10-03] MEDS: Dextrose 5%-0.9% NaCl 1,000 ML IV SCH (12:53)
[2020-10-03] MEDS: Acetaminophen 325 MG Tab PO PRN (20:48)
[2020-10-03] MEDS: atorvaSTATin 40 MG Tab PO SCH ×2 (21:03→23:20)
[2020-10-04] MEDS: Heparin Sodium 5,000 Units/ML Vial SUBCUT SCH ×2 (08:10→16:16)
[2020-10-04] MEDS: Aspirin 81 MG Tab.Chew PO SCH (08:10)
[2020-10-04] MEDS: Clopidogrel 75 MG Tab PO SCH (08:10)
--- NOTE | 2020-10-04 08:36 | PCM.PN ---
- General Info Date of Service: 10/04/20 Admission Dx/Problem (Free Text): Admission Diagnosis/Problem Admission Diagnosis/Problem Cerebrovascular accident Subjective Update: No acute events overnight. No new nursing concerns. No signs of worsening focal deficits Awaiting shelter placement at this time. - Patient Data Vitals - Most Recent: Last Vital Signs Temp 97.2 F 10/04/20 07:29 Pulse 78 10/04/20 07:29 Resp 20 10/04/20 07:29 BP 149/82 H 10/04/20 07:29 Pulse Ox 96 10/04/20 07:29 Weight - Most Recent: 146 lb 6.4 oz I&O - Last 24 Hours: Intake & Output 10/03/20 10/04/20 10/04/20 22:59 06:59 14:59 Intake Total 1200 150 Output Total 100 600 Balance 1100 -450 [place] Results Last 24 Hours: Microbiology 10/02/20 09:53 Aerobic Blood Culture - Preliminary Blood - Venous - Lab Draw NO GROWTH AFTER 1 DAY Anaerobic Blood Culture - Preliminary NO GROWTH AFTER 1 DAY 10/02/20 09:44 Aerobic Blood Culture - Preliminary Blood - Venous NO GROWTH AFTER 1 DAY Anaerobic Blood Culture - Preliminary NO GROWTH AFTER 1 DAY Med Orders - Current: Current Medications Acetaminophen (Acetaminophen 325 Mg Tab) 650 mg PO Q4H PRN PRN Reason: Pain (Mild 1-3)/fever Last Admin: 10/03/20 20:48 Dose: 325 mg Documented by: Aspirin (Aspirin 81 Mg Tab.Chew) 81 mg PO DAILY [facility] Last Admin: 10/04/20 08:10 Dose: 81 mg Documented by: Atorvastatin Calcium (Atorvastatin 40 Mg Tab) 40 mg PO BEDTIME [facility] Last Admin: 10/03/20 23:20 Dose: 40 mg Documented by: Clopidogrel Bisulfate (Clopidogrel 75 Mg Tab) 75 mg PO DAILY [facility] Last Admin: 10/04/20 08:10 Dose: 75 mg Documented by: Docusate Sodium (Docusate Sodium 100 Mg Cap) 100 mg PO BID PRN PRN Reason: Constipation Heparin Sodium (Porcine) (Heparin Sodium 5,000 Units/Ml Vial) 5,000 units SUBCUT Q8H [facility] Last Admin: 10/04/20 08:10 Dose: 5,000 units Documented by: Ondansetron HCl (Ondansetron 4 Mg Tab.Dis) 4 mg PO Q4H PRN PRN Reason: nausea, able to take PO Ondansetron HCl (Ondansetron 4 Mg/2 Ml Sdv) 4 mg IV Q4H PRN PRN Reason: Nausea/Vomiting Sodium Chloride (Sodium Chloride 0.9% 10 Ml Syringe) 10 ml FLUSH ASDIRECTED PRN PRN Reason: Keep Vein Open Discontinued Medications Aspirin (Aspirin 81 Mg Tab.Chew) 324 mg PO ONETIME ONE Stop: 10/02/20 12:33 Last Admin: 10/02/20 13:46 Dose: 324 mg Documented by: Clopidogrel Bisulfate (Clopidogrel 75 Mg Tab) 75 mg PO ONETIME ONE Stop: 10/02/20 12:34 Last Admin: 10/02/20 13:46 Dose: 75 mg Documented by: Furosemide (Furosemide 40 Mg/4 Ml Vial) 40 mg IVPUSH NOW ONE Stop: 10/02/20 10:49 Last Admin: 10/02/20 11:30 Dose: 40 mg Documented by: Dextrose/Sodium Chloride (Dextrose 5%-Normal Saline) 1,000 mls @ 250 mls/hr IV ASDIRECTED [facility] Last Admin: 10/02/20 10:07 Dose: 250 mls/hr Documented by: Dextrose/Sodium Chloride (Dextrose 5%-Normal Saline) 1,000 mls @ 75 mls/hr IV ASDIRECTED [facility] Last Admin: 10/03/20 12:53 Dose: 75 mls/hr Documented by: Potassium Chloride 10 meq/ (Premix) 100 mls @ 100 mls/hr IV Q1H [facility] Stop: 10/03/20 12:29 Last Admin: 10/03/20 12:58 Dose: 100 mls/hr Documented by: Metoclopramide HCl (Metoclopramide 10 Mg/2 Ml Sdv) 5 mg IVPUSH ONETIME ONE Stop: 10/02/20 09:08 Last Admin: 10/02/20 10:06 Dose: 5 mg Documented by: - Exam General: Alert. No: Oriented Lungs: Clear to Auscultation Cardiovascular: Regular Rate GI/Abdominal Exam: Normal Bowel Sounds, Soft Extremities: Normal Inspection Skin: Warm Neurological: No New Focal Deficit - Patient Data Result Diagrams: 10/03/20 06:25 10/03/20 05:11 [place] Results Last 24 hrs: Microbiology 10/02/20 09:53 Aerobic Blood Culture - Preliminary Blood - Venous - Lab Draw NO GROWTH AFTER 1 DAY Anaerobic Blood Culture - Preliminary NO GROWTH AFTER 1 DAY 10/02/20 09:44 Aerobic Blood Culture - Preliminary Blood - Venous NO GROWTH AFTER 1 DAY Anaerobic Blood Culture - Preliminary NO GROWTH AFTER 1 DAY Sepsis Event Note - Evaluation Sepsis Screening Result: No Definite Risk - Focused Exam Vital Signs: Vital Signs Temp Temp Pulse Pulse Resp BP BP 10/04/20 07:29 97.2 F 78 20 149/82 H 10/04/20 05:00 98.5 F 82 18 127/74 10/03/20 23:36 98.4 F 88 16 156/56 H Pulse Ox 10/04/20 07:29 96 10/04/20 05:00 96 10/03/20 23:36 98 - Problem List Review Problem List Initiated/Reviewed/Updated: Yes - My Orders Last 24 Hours: My Active Orders 10/03/20 09:00 Aspirin 81 mg PO DAILY Clopidogrel [Plavix] 75 mg PO DAILY - Assessment Assessment:: 1. Multiple foci of posterior embolic CVA's 2. Dementia 3. CKD stage III 4. Hypokalemia 5. Hyperlipidemia - Plan Plan:: 1. Acute CVA. Multiple posterior circulation embolic events. Initiated aspirin and Plavix on admission. Continue Lipitor 40 mg daily. Lipid Panel notable for multiple abnormalities Deferred A1c testing due to advanced age. In accordance with family wishes, will not pursue further work-up including echocardiogram with bubble study or carotid imaging. Swallow evaluation by nursing and speech therapy concluded that she requires multiple requirements to help prevent aspiration events. Diet restrictions have been ordered We are awaiting placement to local shelter which I am told will likely not be occurring until early next week. 2. Increased troponin. Likely secondary to acute CVAs. This was discussed with the patient's family, troponin most likely due to acute stroke and not due to an acute heart attack. Will not anticoagulate further beyond dual antiplatelet therapy as per family. No cardiac work-up will be pursued according to family wishes 3. Dementia. Appears to be quite advanced. 4. CKD stage III. Avoid nephrotoxins. Replace electrolytes as necessary. 5. Hypokalemia. Continue to replace as needed. CODE STATUS: DNR/DNI DVT prophylaxis with heparin and SCDs.
[2020-10-04] MEDS ORDERED: hydrALAZINE 20 MG/ML SDV IVPUSH PRN ×2 (21:07→21:18)
[2020-10-04] MEDS: atorvaSTATin 40 MG Tab PO SCH (22:52)
[2020-10-05] MEDS: Heparin Sodium 5,000 Units/ML Vial SUBCUT SCH ×4 (00:54→22:04)
[2020-10-05] MEDS: Aspirin 81 MG Tab.Chew PO SCH (08:21)
[2020-10-05] MEDS: Clopidogrel 75 MG Tab PO SCH (08:21)
--- NOTE | 2020-10-05 08:37 | PCM.PN ---
- General Info Date of Service: 10/05/20 Admission Dx/Problem (Free Text): Admission Diagnosis/Problem Admission Diagnosis/Problem Cerebrovascular accident Subjective Update: No acute events overnight. No new nursing concerns. Patient awaiting placement to a local detention. Patient's other daughter updated regarding condition at time of presentation and with the overall plan is. Patient is demented and occasionally needs redirection by nursing. Not otherw ise a hazard to her own health care or to staff. - Patient Data Vitals - Most Recent: Last Vital Signs Temp 98.4 F 10/05/20 07:53 Pulse 73 10/05/20 07:53 Resp 16 10/05/20 07:53 BP 154/78 H 10/05/20 07:53 Pulse Ox 95 10/05/20 07:53 Weight - Most Recent: 141 lb 11.2 oz I&O - Last 24 Hours: Intake & Output 10/04/20 10/05/20 10/05/20 22:59 06:59 14:59 Intake Total 300 0 Output Total 1000 500 Balance -700 -500 [place] Results Last 24 Hours: Microbiology 10/02/20 09:53 Aerobic Blood Culture - Preliminary Blood - Venous - Lab Draw NO GROWTH AFTER 2 DAYS Anaerobic Blood Culture - Preliminary NO GROWTH AFTER 2 DAYS 10/02/20 09:44 Aerobic Blood Culture - Preliminary Blood - Venous NO GROWTH AFTER 2 DAYS Anaerobic Blood Culture - Preliminary NO GROWTH AFTER 2 DAYS Med Orders - Current: Current Medications Acetaminophen (Acetaminophen 325 Mg Tab) 650 mg PO Q4H PRN PRN Reason: Pain (Mild 1-3)/fever Last Admin: 10/03/20 20:48 Dose: 325 mg Documented by: Aspirin (Aspirin 81 Mg Tab.Chew) 81 mg PO DAILY [facility] Last Admin: 10/05/20 08:21 Dose: 81 mg Documented by: Atorvastatin Calcium (Atorvastatin 40 Mg Tab) 40 mg PO BEDTIME [facility] Last Admin: 10/04/20 22:52 Dose: Not Given Documented by: Clopidogrel Bisulfate (Clopidogrel 75 Mg Tab) 75 mg PO DAILY [facility] Last Admin: 10/05/20 08:21 Dose: 75 mg Documented by: Docusate Sodium (Docusate Sodium 100 Mg Cap) 100 mg PO BID PRN PRN Reason: Constipation Heparin Sodium (Porcine) (Heparin Sodium 5,000 Units/Ml Vial) 5,000 units SUBCUT Q8H [facility] Last Admin: 10/05/20 06:17 Dose: 5,000 units Documented by: Hydralazine HCl (Hydralazine 20 Mg/Ml Sdv) 10 mg IVPUSH Q4H PRN PRN Reason: Hypertension SBP>180 Last Admin: 10/04/20 21:25 Dose: 10 mg Documented by: Ondansetron HCl (Ondansetron 4 Mg Tab.Dis) 4 mg PO Q4H PRN PRN Reason: nausea, able to take PO Ondansetron HCl (Ondansetron 4 Mg/2 Ml Sdv) 4 mg IV Q4H PRN PRN Reason: Nausea/Vomiting Sodium Chloride (Sodium Chloride 0.9% 10 Ml Syringe) 10 ml FLUSH ASDIRECTED PRN PRN Reason: Keep Vein Open Discontinued Medications Aspirin (Aspirin 81 Mg Tab.Chew) 324 mg PO ONETIME ONE Stop: 10/02/20 12:33 Last Admin: 10/02/20 13:46 Dose: 324 mg Documented by: Clopidogrel Bisulfate (Clopidogrel 75 Mg Tab) 75 mg PO ONETIME ONE Stop: 10/02/20 12:34 Last Admin: 10/02/20 13:46 Dose: 75 mg Documented by: Furosemide (Furosemide 40 Mg/4 Ml Vial) 40 mg IVPUSH NOW ONE Stop: 10/02/20 10:49 Last Admin: 10/02/20 11:30 Dose: 40 mg Documented by: Hydralazine HCl (Hydralazine 20 Mg/Ml Sdv) 10 mg IVPUSH Q4H PRN PRN Reason: Hypertension Dextrose/Sodium Chloride (Dextrose 5%-Normal Saline) 1,000 mls @ 250 mls/hr IV ASDIRECTED [facility] Last Admin: 10/02/20 10:07 Dose: 250 mls/hr Documented by: Dextrose/Sodium Chloride (Dextrose 5%-Normal Saline) 1,000 mls @ 75 mls/hr IV ASDIRECTED [facility] Last Admin: 10/03/20 12:53 Dose: 75 mls/hr Documented by: Potassium Chloride 10 meq/ (Premix) 100 mls @ 100 mls/hr IV Q1H [facility] Stop: 10/03/20 12:29 Last Admin: 10/03/20 12:58 Dose: 100 mls/hr Documented by: Metoclopramide HCl (Metoclopramide 10 Mg/2 Ml Sdv) 5 mg IVPUSH ONETIME ONE Stop: 10/02/20 09:08 Last Admin: 10/02/20 10:06 Dose: 5 mg Documented by: - Exam General: Alert Lungs: Clear to Auscultation Cardiovascular: Regular Rate GI/Abdominal Exam: Normal Bowel Sounds, Soft, Non-Tender Extremities: Normal Inspection Skin: Warm, Dry Neurological: No New Focal Deficit - Patient Data Result Diagrams: 10/03/20 06:25 10/03/20 05:11 [place] Results Last 24 hrs: Microbiology 10/02/20 09:53 Aerobic Blood Culture - Preliminary Blood - Venous - Lab Draw NO GROWTH AFTER 2 DAYS Anaerobic Blood Culture - Preliminary NO GROWTH AFTER 2 DAYS 10/02/20 09:44 Aerobic Blood Culture - Preliminary Blood - Venous NO GROWTH AFTER 2 DAYS Anaerobic Blood Culture - Preliminary NO GROWTH AFTER 2 DAYS Sepsis Event Note - Evaluation Sepsis Screening Result: No Definite Risk - Focused Exam Vital Signs: Vital Signs Temp Pulse Resp BP BP Pulse Ox 10/05/20 07:53 98.4 F 73 16 154/78 H 95 10/05/20 04:39 98.4 F 83 16 158/88 H 97 10/04/20 21:55 138/65 10/04/20 20:57 180/90 H 10/04/20 20:52 182/95 H 10/04/20 20:50 99.0 F 93 16 171/109 H 96 - Problem List Review Problem List Initiated/Reviewed/Updated: Yes - My Orders Last 24 Hours: My Active Orders 10/04/20 17:29 Aspiration Precautions [RC] ASDIRECTED 10/04/20 21:18 hydrALAZINE [Apresoline] 10 mg IVPUSH Q4H PRN 10/06/20 11:59 CORONAVIRUS COVID-19 [facility] [[facility]] Routine - Assessment Assessment:: 1. Multiple foci of posterior embolic CVA's 2. Dementia 3. CKD stage III 4. Hypokalemia 5. Hyperlipidemia - Plan Plan:: 1. Acute CVA. Multiple posterior circulation embolic events. Initiated aspirin and Plavix on admission. Continue Lipitor 40 mg daily. Lipid Panel notable for multiple abnormalities Deferred A1c testing due to advanced age. In accordance with family wishes, will not pursue further work-up including echocardiogram with bubble study or carotid imaging. Swallow evaluation by nursing and speech therapy concluded that she requires multiple dietary specifications to help prevent aspiration events. Diet restrictions have been ordered We are awaiting placement to local detention which I am told will likely not be occurring until early next week. 2. Increased troponin. Likely secondary to acute CVAs. This was discussed with the patient's family, troponin most likely due to acute stroke and not due to an acute heart attack. Will not anticoagulate further beyond dual antiplatelet therapy as per family. No cardiac work-up will be pursued according to family wishes 3. Dementia. Appears to be quite advanced. 4. CKD stage III. Avoid nephrotoxins. Replace electrolytes as necessary. 5. Hypokalemia. Continue to replace as needed. CODE STATUS: DNR/DNI DVT prophylaxis with heparin and SCDs. No acute change in treatment. Awaiting placement.
[2020-10-05] MEDS: atorvaSTATin 40 MG Tab PO SCH (22:04)
[2020-10-06] MEDS: Heparin Sodium 5,000 Units/ML Vial SUBCUT SCH ×3 (07:01→23:40)
[2020-10-06] MEDS: Aspirin 81 MG Tab.Chew PO SCH (08:35)
[2020-10-06] MEDS: Clopidogrel 75 MG Tab PO SCH (08:35)
--- NOTE | 2020-10-06 08:41 | PCM.PN ---
- General Info Date of Service: 10/06/20 Admission Dx/Problem (Free Text): Admission Diagnosis/Problem Admission Diagnosis/Problem Cerebrovascular accident Subjective Update: No events overnight. No specific new nursing concerns. Awaiting placement. - Patient Data Vitals - Most Recent: Last Vital Signs Temp 98.2 F 10/06/20 07:28 Pulse 72 10/06/20 07:28 Resp 16 10/06/20 07:28 BP 172/97 H 10/06/20 07:28 Pulse Ox 97 10/06/20 07:28 Weight - Most Recent: 143 lb 9.6 oz I&O - Last 24 Hours: Intake & Output 10/05/20 10/06/20 10/06/20 22:59 06:59 14:59 Intake Total 500 300 Output Total 300 500 Balance 200 -200 [place] Results Last 24 Hours: Microbiology 10/02/20 09:53 Aerobic Blood Culture - Preliminary Blood - Venous - Lab Draw NO GROWTH AFTER 3 DAYS Anaerobic Blood Culture - Preliminary NO GROWTH AFTER 3 DAYS 10/02/20 09:44 Aerobic Blood Culture - Preliminary Blood - Venous NO GROWTH AFTER 3 DAYS Anaerobic Blood Culture - Preliminary NO GROWTH AFTER 3 DAYS Med Orders - Current: Current Medications Acetaminophen (Acetaminophen 325 Mg Tab) 650 mg PO Q4H PRN PRN Reason: Pain (Mild 1-3)/fever Last Admin: 10/03/20 20:48 Dose: 325 mg Documented by: Aspirin (Aspirin 81 Mg Tab.Chew) 81 mg PO DAILY [facility] Last Admin: 10/06/20 08:35 Dose: 81 mg Documented by: Atorvastatin Calcium (Atorvastatin 40 Mg Tab) 40 mg PO BEDTIME [facility] Last Admin: 10/05/20 22:04 Dose: 40 mg Documented by: Clopidogrel Bisulfate (Clopidogrel 75 Mg Tab) 75 mg PO DAILY [facility] Last Admin: 10/06/20 08:35 Dose: 75 mg Documented by: Docusate Sodium (Docusate Sodium 100 Mg Cap) 100 mg PO BID PRN PRN Reason: Constipation Heparin Sodium (Porcine) (Heparin Sodium 5,000 Units/Ml Vial) 5,000 units SUBCUT Q8H [facility] Last Admin: 10/06/20 07:01 Dose: 5,000 units Documented by: Hydralazine HCl (Hydralazine 20 Mg/Ml Sdv) 10 mg IVPUSH Q4H PRN PRN Reason: Hypertension SBP>180 Last Admin: 10/04/20 21:25 Dose: 10 mg Documented by: Ondansetron HCl (Ondansetron 4 Mg Tab.Dis) 4 mg PO Q4H PRN PRN Reason: nausea, able to take PO Ondansetron HCl (Ondansetron 4 Mg/2 Ml Sdv) 4 mg IV Q4H PRN PRN Reason: Nausea/Vomiting Sodium Chloride (Sodium Chloride 0.9% 10 Ml Syringe) 10 ml FLUSH ASDIRECTED PRN PRN Reason: Keep Vein Open Discontinued Medications Aspirin (Aspirin 81 Mg Tab.Chew) 324 mg PO ONETIME ONE Stop: 10/02/20 12:33 Last Admin: 10/02/20 13:46 Dose: 324 mg Documented by: Clopidogrel Bisulfate (Clopidogrel 75 Mg Tab) 75 mg PO ONETIME ONE Stop: 10/02/20 12:34 Last Admin: 10/02/20 13:46 Dose: 75 mg Documented by: Furosemide (Furosemide 40 Mg/4 Ml Vial) 40 mg IVPUSH NOW ONE Stop: 10/02/20 10:49 Last Admin: 10/02/20 11:30 Dose: 40 mg Documented by: Hydralazine HCl (Hydralazine 20 Mg/Ml Sdv) 10 mg IVPUSH Q4H PRN PRN Reason: Hypertension Dextrose/Sodium Chloride (Dextrose 5%-Normal Saline) 1,000 mls @ 250 mls/hr IV ASDIRECTED [facility] Last Admin: 10/02/20 10:07 Dose: 250 mls/hr Documented by: Dextrose/Sodium Chloride (Dextrose 5%-Normal Saline) 1,000 mls @ 75 mls/hr IV ASDIRECTED [facility] Last Admin: 10/03/20 12:53 Dose: 75 mls/hr Documented by: Potassium Chloride 10 meq/ (Premix) 100 mls @ 100 mls/hr IV Q1H [facility] Stop: 10/03/20 12:29 Last Admin: 10/03/20 12:58 Dose: 100 mls/hr Documented by: Metoclopramide HCl (Metoclopramide 10 Mg/2 Ml Sdv) 5 mg IVPUSH ONETIME ONE Stop: 10/02/20 09:08 Last Admin: 10/02/20 10:06 Dose: 5 mg Documented by: - Exam General: Alert Lungs: Clear to Auscultation, Normal Respiratory Effort Cardiovascular: Regular Rate GI/Abdominal Exam: Normal Bowel Sounds, Soft Extremities: Normal Inspection Neurological: No New Focal Deficit - Patient Data Result Diagrams: 10/03/20 06:25 10/03/20 05:11 [place] Results Last 24 hrs: Microbiology 10/02/20 09:53 Aerobic Blood Culture - Preliminary Blood - Venous - Lab Draw NO GROWTH AFTER 3 DAYS Anaerobic Blood Culture - Preliminary NO GROWTH AFTER 3 DAYS 10/02/20 09:44 Aerobic Blood Culture - Preliminary Blood - Venous NO GROWTH AFTER 3 DAYS Anaerobic Blood Culture - Preliminary NO GROWTH AFTER 3 DAYS Sepsis Event Note - Evaluation Sepsis Screening Result: No Definite Risk - Focused Exam Vital Signs: Vital Signs Temp Pulse Resp BP Pulse Ox 10/06/20 07:28 98.2 F 72 16 172/97 H 97 10/06/20 06:47 97.9 F 80 16 156/98 H 97 10/06/20 02:03 143/74 H 10/06/20 02:02 98.8 F 81 16 95 - Problem List Review Problem List Initiated/Reviewed/Updated: Yes - My Orders Last 24 Hours: My Active Orders 10/06/20 11:59 CORONAVIRUS COVID-19 [facility] [[facility]] Routine - Assessment Assessment:: 1. Multiple foci of posterior embolic CVA's 2. Dementia 3. CKD stage III 4. Hypokalemia 5. Hyperlipidemia - Plan Plan:: 1. Acute CVA. Multiple posterior circulation embolic events. Initiated aspirin and Plavix on admission. Continue Lipitor 40 mg daily. Lipid Panel notable for multiple abnormalities Deferred A1c testing due to advanced age. In accordance with family wishes, will not pursue further work-up including echocardiogram with bubble study or carotid imaging. Swallow evaluation by nursing and speech therapy concluded that she requires mul tiple dietary specifications to help prevent aspiration events. Diet restrictions have been ordered We are [facility] which I am told will likely not be occurring until early next week. 2. Increased troponin. Likely secondary to acute CVAs. This was discussed with the patient's family, troponin most likely due to acute stroke and not due to an acute heart attack. Will not anticoagulate further beyond dual antiplatelet therapy as per family. No cardiac work-up will be pursued according to family wishes 3. Dementia. Appears to be quite advanced. 4. CKD stage III. Avoid nephrotoxins. Replace electrolytes as necessary. CODE STATUS: DNR/DNI DVT prophylaxis with heparin and SCDs. No acute change in treatment. Does not require any change in care or acute oh dical attention. Awaiting placement.
[2020-10-06] MEDS: Acetaminophen 325 MG Tab PO PRN (20:27)
[2020-10-06] MEDS: atorvaSTATin 40 MG Tab PO SCH (20:30)
[2020-10-07] MEDS: Heparin Sodium 5,000 Units/ML Vial SUBCUT SCH (06:26)
[2020-10-07] MEDS: Clopidogrel 75 MG Tab PO SCH (08:06)
[2020-10-07] MEDS: Aspirin 81 MG Tab.Chew PO SCH (08:06)
--- NOTE | 2020-10-07 09:49 | PCM.DCSUM1 ---
Discharge Summary - Hospital Course Free Text/Narrative:: 1. Acute CVA. Multiple posterior circulation embolic events. Initiated aspirin and Plavix on admission. Continued Lipitor 40 mg daily. Lipid Panel notable for multiple abnormalities Deferred A1c testing due to advanced age. In accordance with family wishes, we did not not pursue further work-up including echocardiogram with bubble study or carotid imaging. Swallow evaluation by nursing and speech therapy concluded that she requires multiple dietary specifications to help prevent aspiration events. Diet restrictions have been ordered 2. Increased troponin. Likely secondary to acute CVAs. This was discussed with the patient's family, troponin most likely due to acute stroke and not due to an acute heart attack. Will not anticoagulate further beyond dual antiplatelet therapy as per family. No cardiac work-up was pursued according to family wishes 3. Dementia. Appears to be quite advanced. 4. CKD stage III. Avoid nephrotoxins. Replaced electrolytes as necessary. CODE STATUS: DNR/DNI DVT prophylaxis with heparin and SCDs. HPI Initial Comments: nitial Comments - Free Text/Narative: Past medical history as listed below who presents to the [facility] emergency department with her daughter due to fall earlier today as well as generally appearing unstable for the past 2 days. According to the daughter and ER personnel, the patient was in her usual state of health up until 2 days ago when her daughter noticed that she was having difficulties walking. She seemed to be more confused than usual as well. She was using the chand and various objects in order to help stand as she seemed wobbly on her feet. She also seemed to have a decline in her vision and was wondering why her glasses were not working as well as usual. She denied any blind spots, however. Vision seems to be blurry at times. She was also complaining of new lightheadedness and dizziness, which prompted an evaluation at the local clinic yesterday. She was "checked out" and deemed safe to go home. She was given a prescription for meclizine; low-dose at 12.5 mg twice daily. This has not seemed to be a remedy for her dizziness and lightheadedness at home, which is continuing to be her most prominent symptom. Upon trying to get into the car earlier today she had exquisite difficulty and lost her balance. She was caught and lowered to the floor. She was then brought into the emergency department for evaluation. Her neurologic exam seem to be mostly benign with the exception of exquisite dementia. No obvious focal deficits were noted. Work-up was notable for multiple embolic events on CT and MRI of the brain. A consult between ER personnel and neurology was held. It was recommended that the patient be placed on statin therapy as well as dual antiplatelet therapy. Aggressive work-up was not wanted by the family. Patient was referred to the internal medicine service for further evaluation if necessary and for case management and social work consults to help the family relocate this pleasant lady to a facility in which she can be watched and cared for. The patient lives alone, her daughter who is present with her today typically stays with her 3 days out of the week, but she is always by her self at night. The patient is not complaining of any specific symptoms. A 14 point review of systems was reviewed with the patient's daughter and only pertinent for the above information. CODE STATUS: Reviewed and full code for now. We are awaiting answers from her power of assistant county attorney who happens to be her son who is unavailable by telephone at current time. - Related Data Allergies/Adverse Reactions: Allergies Allergy/AdvReac Type Severity Reaction Status Date / Time No Known Allergies Allergy Verified 10/01/20 12:58 Home Medications: Home Meds Meclizine [Antivert] 12.5 mg PO BID #14 tab 10/01/20 [Rx] Past Medical History HEENT History: Reports: Impaired Vision Cardiovascular History: Reports: Hypertension Musculoskeletal History: Reports: Osteoporosis Neurological History: Reports: Other (See Below) Other Neuro History: Dementia Psychiatric History: Reports: Dementia - Past Surgical History HEENT Surgical History: Reports: Other (See Below) Other HEENT Surgeries/Procedures: Throat Surgery Female Surgical History: Reports: Hysterectomy (And likely bilateral oophorectomy for salpingo-oophorectomy. It is suspect that she also had a coincidental appendectomy as the surgery was done over 40 years ago.) Social & Family History - Caffeine Use Caffeine Use: Reports: Coffee - Living Situation & Occupation Living situation: Reports: , Alone Occupation: Retired H&P Review of Systems - Review of Systems: Review Of Systems: Comprehensive ROS is negative, except as noted in HPI. Neurological: Reports: Dizziness, Difficulty Walking Exam - Exam Exam: See Below - Vital Signs Vital Signs: Last Vital Signs Temp 97.4 F 10/02/20 09:04 Pulse 87 10/02/20 09:04 Resp 18 10/02/20 09:04 BP 158/91 H 10/02/20 09:04 Pulse Ox Weight: 150 lb - Exam General: Alert (Only oriented to herself. Recognizes her daughter and her name. Not oriented to place or time.) HEENT: Conjunctiva Clear, EOMI, Pupils Equal, Pupils Reactive Neck: Supple, Trachea Midline Lungs: Clear to Auscultation, Normal Respiratory Effort Cardiovascular: Regular Rate, Normal S1, Normal S2 GI/Abdominal Exam: Normal Bowel Sounds, Soft, Non-Tender, No Distention Extremities: Normal Inspection, No Pedal Edema Skin: Warm, Dry, Intact Neurological: Cranial Nerves Intact, Reflexes Equal Bilateral, Strength Equal Bilateral, Sensation Intact, Other (gait not tested in the emergency department) Neuro Extensive - Mental Status: Normal Mood/Affect, Disorientation to Place, Disorientation to Time Neuro Extensive - Motor, Sensory, Reflexes: No: Tongue Deviation (L), Tongue Deviation (R), Expressive Aphasia, Hemeplagia (R), Hemeplagia (L), Pronator Drift (R), Pronator Drift (L), Babinski, Motor/Sensory Deficits Diagnosis: Stroke: Yes Modified Michael Scale: No Signif.Disability Despite Sympt.Able to Carry Out Usual Act./Duties Modified [place]fee Scale Score: 1 - Discharge Data Discharge Date: 10/07/20 Discharge Disposition: DC/Tfer to SNF 03 Condition: Good - Referral to Home Health Primary Care Physician: Néstor Collazo MD - Patient Summary/Data Consults: Consultations 10/02/20 13:18 OT Evaluation and Treatment [CONS] Routine PT Evaluation and Treatment [CONS] Routine EMPLOYMENT INTERVIEWER Evaluation and Treatment [CONS] Routine 10/02/20 14:41 Consult to Case Management/Industry Segment Specialist [CONS] Routine - Patient Instructions Diet: Regular Diet as Tolerated Other/Special Instructions: Activity and diet are as tolerated. Continue taking medications as outlined in the discharge packet. Follow-up with PCP within 1 to 2 weeks time. If you experience any signs or symptoms that warranted this admission please contact your primary care physician or present to an emergency department for an immediate evaluation. - Discharge Plan *PRESCRIPTION DRUG MONITORING PROGRAM REVIEWED*: Not Applicable *COPY OF PRESCRIPTION DRUG MONITORING REPORT IN PATIENT MINH: Not Applicable Home Medications: Home Meds Meclizine [Antivert] 12.5 mg PO BID #14 tab 10/01/20 [Rx] Acetaminophen [Tylenol] 650 mg PO Q4H PRN tablet 10/07/20 [Rx] Aspirin 81 mg PO DAILY tab.chew 10/07/20 [Rx] Clopidogrel [Plavix] 75 mg PO DAILY tablet 10/07/20 [Rx] atorvaSTATin [Lipitor] 40 mg PO BEDTIME tablet 10/07/20 [Rx] Patient Handouts: Ischemic Stroke, [id number] Forms: ED Department Discharge Referrals: Lex Herndon MD [Ordering Only Provider] - 10/15/20 11:30 am (check in 11:15) - Discharge Summary/Plan Comment DC Time >30 min.: Yes - General Info Date of Service: 10/07/20 Admission Dx/Problem (Free Text: Admission Diagnosis/Problem Admission Diagnosis/Problem Cerebrovascular accident Subjective Update: No acute events overnight. No new nursing concerns. Patient does not endorse any new complaints. - Patient Data Vitals - Most Recent: Last Vital Signs Temp 98.1 F 10/07/20 04:09 Pulse 78 10/07/20 04:09 Resp 14 10/07/20 04:09 BP 157/86 H 10/07/20 04:09 Pulse Ox 96 10/07/20 04:09 Weight - Most Recent: 141 lb 1.6 oz I&O - Last 24 hours: Intake & Output 10/06/20 10/07/20 10/07/20 22:59 06:59 14:59 Intake Total 360 400 Output Total 400 650 Balance -40 -250 Lab Results - Last 24 hrs: Laboratory Results - last 24 hr 10/06/20 Range/Units 11:01 SARS-CoV-2 RNA (LORRIE) Negative (NEGATIVE) CARISSA Results - Last 24 hrs: Microbiology 10/02/20 09:53 Aerobic Blood Culture - Preliminary Blood - Venous - Lab Draw NO GROWTH AFTER 4 DAYS Anaerobic Blood Culture - Preliminary NO GROWTH AFTER 4 DAYS 10/02/20 09:44 Aerobic Blood Culture - Preliminary Blood - Venous NO GROWTH AFTER 4 DAYS Anaerobic Blood Culture - Preliminary NO GROWTH AFTER 4 DAYS Med Orders - Current: Current Medications Acetaminophen (Acetaminophen 325 Mg Tab) 650 mg PO Q4H PRN PRN Reason: Pain (Mild 1-3)/fever Last Admin: 10/06/20 20:27 Dose: 650 mg Documented by: Aspirin (Aspirin 81 Mg Tab.Chew) 81 mg PO DAILY [facility] Last Admin: 10/07/20 08:06 Dose: 81 mg Documented by: Atorvastatin Calcium (Atorvastatin 40 Mg Tab) 40 mg PO BEDTIME [facility] Last Admin: 10/06/20 20:30 Dose: 40 mg Documented by: Clopidogrel Bisulfate (Clopidogrel 75 Mg Tab) 75 mg PO DAILY [facility] Last Admin: 10/07/20 08:06 Dose: 75 mg Documented by: Docusate Sodium (Docusate Sodium 100 Mg Cap) 100 mg PO BID PRN PRN Reason: Constipation Heparin Sodium (Porcine) (Heparin Sodium 5,000 Units/Ml Vial) 5,000 units SUBCUT Q8H [facility] Last Admin: 10/07/20 06:26 Dose: 5,000 units Documented by: Hydralazine HCl (Hydralazine 20 Mg/Ml Sdv) 10 mg IVPUSH Q4H PRN PRN Reason: Hypertension SBP>180 Last Admin: 10/04/20 21:25 Dose: 10 mg Documented by: Ondansetron HCl (Ondansetron 4 Mg Tab.Dis) 4 mg PO Q4H PRN PRN Reason: nausea, able to take PO Ondansetron HCl (Ondansetron 4 Mg/2 Ml Sdv) 4 mg IV Q4H PRN PRN Reason: Nausea/Vomiting Sodium Chloride (Sodium Chloride 0.9% 10 Ml Syringe) 10 ml FLUSH ASDIRECTED PRN PRN Reason: Keep Vein Open Discontinued Medications Aspirin (Aspirin 81 Mg Tab.Chew) 324 mg PO ONETIME ONE Stop: 10/02/20 12:33 Last Admin: 10/02/20 13:46 Dose: 324 mg Documented by: Clopidogrel Bisulfate (Clopidogrel 75 Mg Tab) 75 mg PO ONETIME ONE Stop: 10/02/20 12:34 Last Admin: 10/02/20 13:46 Dose: 75 mg Documented by: Furosemide (Furosemide 40 Mg/4 Ml Vial) 40 mg IVPUSH NOW ONE Stop: 10/02/20 10:49 Last Admin: 10/02/20 11:30 Dose: 40 mg Documented by: Hydralazine HCl (Hydralazine 20 Mg/Ml Sdv) 10 mg IVPUSH Q4H PRN PRN Reason: Hypertension Dextrose/Sodium Chloride (Dextrose 5%-Normal Saline) 1,000 mls @ 250 mls/hr IV ASDIRECTED HERMINIO Last Admin: 10/02/20 10:07 Dose: 250 mls/hr Documented by: Dextrose/Sodium Chloride (Dextrose 5%-Normal Saline) 1,000 mls @ 75 mls/hr IV ASDIRECTED HERMINIO Last Admin: 10/03/20 12:53 Dose: 75 mls/hr Documented by: Potassium Chloride 10 meq/ (Premix) 100 mls @ 100 mls/hr IV Q1H HERMINIO Stop: 10/03/20 12:29 Last Admin: 10/03/20 12:58 Dose: 100 mls/hr Documented by: Metoclopramide HCl (Metoclopramide 10 Mg/2 Ml Sdv) 5 mg IVPUSH ONETIME ONE Stop: 10/02/20 09:08 Last Admin: 10/02/20 10:06 Dose: 5 mg Documented by: - Exam Quality Assessment: Reports: DVT Prophylaxis. Denies: Supplemental Oxygen General: Reports: Alert, Cooperative, No Acute Distress. Denies: Oriented Neck: Reports: Supple Lungs: Reports: Clear to Auscultation, Normal Respiratory Effort Cardiovascular: Reports: Regular Rate GI/Abdominal Exam: Normal Bowel Sounds, Soft, Non-Tender Extremities: Normal Inspection, No Pedal Edema Skin: Reports: Warm, Dry Neurological: Reports: No New Focal Deficit, Strength Equal Bilateral, Cranial Nerves Intact Psy/Mental Status: Reports: Normal Mood
== END 2020-10-07 13:02 | DRG 65 ==
LOC: JD.ED 08:41 → JD.MS 13:18
PROVIDERS: ADMIT Hospitalist; ATTEND Hospitalist
DX: I63.9 Cerebral infarction, unspecified (principal); I13.0 Hypertensive heart and chronic kidney disease with heart failure and stage 1 through stage 4 chronic kidney disease, or unspecified chronic kidney disease; N18.30 Chronic kidney disease, stage 3 unspecified; Z66 Do not resuscitate; R74.8 Abnormal levels of other serum enzymes; H54.7 Unspecified visual loss; I10 Essential (primary) hypertension; M81.0 Age-related osteoporosis without current pathological fracture; Z79.899 Other long term (current) drug therapy; R42 Dizziness and giddiness; Z90.710 Acquired absence of both cervix and uterus; Z98.890 Other specified postprocedural states; I50.9 Heart failure, unspecified; G30.1 Alzheimer's disease with late onset; F02.80 Dementia in other diseases classified elsewhere, unspecified severity, without behavioral disturbance, psychotic disturbance, mood disturbance, and anxiety; E87.6 Hypokalemia; E78.5 Hyperlipidemia, unspecified; Z20.822 Contact with and (suspected) exposure to COVID-19
CPT/HCPCS: 36415; 70450; 70551; 71045; 80053; 80061; 80307; 81001; 83605; 83735; 83880; 84484; 85025; 85610; 85730; 86140; 87040 ×2; 93005; 96374; 96375; 99285; J1940; J2765; J7042; U0002; 80048; 92610-GN; 93010; 97110-GP; 97116-GP; 97162-GP; 97530-GP; 99223; 99232; 99233; 99239; A9270-GY; J0360; J1644; J3480

== ENCOUNTER 2020-11-24 09:40 | Emergency (ER) | payer MEDICARE, OTHER ==
--- NOTE | 2020-11-24 10:59 | CR ---
Right wrist: 4 views of the right wrist were obtained. Comparison: No prior wrist exam is available. Joint space narrowing is noted off the distal navicular bone. Moderate degenerative change is seen within the CMC joint of the thumb. Scattered joint space narrowing is seen within the MCP joints. Osteopenia is noted. No acute fracture, dislocation or other bony abnormality is appreciated. Impression: 1. Degenerative change as noted above with osteopenia. 2. Nothing acute is otherwise seen. Diagnostic code #2
--- NOTE | 2020-11-24 11:36 | EDM.PDOC ---
ED HPI GENERAL MEDICAL PROBLEM - General Chief Complaint: Upper Extremity Injury/Pain Stated Complaint: WRIST INJURY Time Seen by Provider: 11/24/20 10:25 Source of Information: Reports: Patient, Family, [facility] Records History Limitations: Reports: No Limitations - History of Present Illness INITIAL COMMENTS - FREE TEXT/NARRATIVE: The patient presents with her daughter for [facility] for right wrist pain. She does not remember injuring her wrist in any way. She did fracture her left wrist a few weeks ago. The custodial was worried she may have gout. She has never had gout before. She has no fever, chills, cough, chest pain, shortness of breath, abdominal pain, nausea or vomiting. Onset: Gradual Duration: Day(s): Location: Reports: Upper Extremity, Right (wrist) Quality: Reports: Sharp Severity: Moderate Improves with: Reports: Immobilization Worsens with: Reports: Movement Context: Denies: Trauma Associated Symptoms: Reports: No Other Symptoms Right Wrist Pain Score (Numeric/FACES): 3 - Related Data Allergies Allergy/AdvReac Type Severity Reaction Status Date / Time No Known Allergies Allergy Verified 11/24/20 10:20 Home Meds: Home Meds Acetaminophen [Tylenol] 325 mg PO Q4HR PRN #90 capsule 10/07/20 [Rx] Aspirin 81 mg PO DAILY #30 tab.chew 10/07/20 [Rx] Clopidogrel Bisulfate [Plavix] 75 mg PO DAILY #30 tablet 10/07/20 [Rx] Clopidogrel [Plavix] 75 mg PO DAILY tablet 10/07/20 [Rx] Meclizine [Antivert] 12.5 mg PO BID PRN #60 tab 10/07/20 [Rx] atorvaSTATin [Lipitor] 40 mg PO BEDTIME #30 tab 10/07/20 [Rx] Past Medical History HEENT History: Reports: Impaired Vision Cardiovascular History: Reports: Hypertension Respiratory History: Reports: SOB Gastrointestinal History: Reports: Other (See Below) Other Gastrointestinal History: last few months diahhrea Genitourinary History: Reports: Urinary Incontinence Musculoskeletal History: Reports: Arthritis, Osteoporosis Neurological History: Reports: Vertigo, Other (See Below) Other Neuro History: Dementia Psychiatric History: Reports: Anxiety, Dementia Other Dermatologic History: water filled cyst on her face, and a large one on her back - Infectious Disease History Infectious Disease History: Reports: Chicken Pox, Measles - Past Surgical History HEENT Surgical History: Reports: Other (See Below) Other HEENT Surgeries/Procedures: Throat Surgery Cardiovascular Surgical History: Reports: None Respiratory Surgical History: Reports: None GI Surgical History: Reports: None Female Surgical History: Reports: Hysterectomy Neurological Surgical History: Reports: None Musculoskeletal Surgical History: Reports: None Dermatological Surgical History: Reports: None Social & Family History - Family History Family Medical History: No Pertinent Family History - Tobacco Use Tobacco Use Status *Q: Former Tobacco User Used Tobacco, but Quit: Yes Month/Year Tobacco Last Used: 03/29/1989 - Caffeine Use Caffeine Use: Reports: Coffee - Recreational Drug Use Recreational Drug Use: No - Living Situation & Occupation Living situation: Reports: , Alone Occupation: Retired Review of Systems - Review of Systems Review Of Systems: See Below Constitutional: Reports: No Symptoms Eyes: Reports: No Symptoms Ears: Reports: No Symptoms Nose: Reports: No Symptoms Mouth/Throat: Reports: No Symptoms Respiratory: Reports: No Symptoms Cardiovascular: Reports: No Symptoms GI/Abdominal: Reports: No Symptoms Genitourinary: Reports: No Symptoms Musculoskeletal: Reports: Other (right wrist swelling and pain) ED EXAM, GENERAL - Physical Exam Exam: See Below Exam Limited By: No Limitations General Appearance: Alert, No Apparent Distress Ears: Normal External Exam Nose: Normal Inspection Head: Atraumatic, Normocephalic Neck: Normal Inspection Respiratory/Chest: No Respiratory Distress GI/Abdominal: Soft, Non-Tender, No Organomegaly, No Mass Rectal (Female) Exam: Heme + Stool Extremities: Other (Mild edema and pain upon palpation to the right wrist with good sensation and capillary refill distally.) Course - Vital Signs Last Recorded V/S: Last Vital Signs Temp 97.0 F 11/24/20 10:18 Pulse 68 11/24/20 10:18 Resp 18 11/24/20 10:18 BP 116/63 11/24/20 10:18 Pulse Ox 96 11/24/20 10:18 - Orders/Labs/Meds Orders: Active Orders 24 hr Category Date Time Status Durable Medical Equipment for Discharge [DME for Oth 11/24/20 11:38 Ordered Discharge] [COMM] Stat Labs: Laboratory Tests 11/24/20 11/24/20 Range/Units 10:38 10:38 WBC 4.23 (3.98-10.04) K/mm3 RBC 2.91 L (3.98-5.22) M/mm3 Hgb 8.4 L D (11.2-15.7) gm/dl Hct 27.6 L (34.1-44.9) % MCV 94.8 (79.4-94.8) fl MCH 28.9 (25.6-32.2) pg MCHC 30.4 L (32.2-35.5) g/dl RDW Std Deviation 48.1 H (36.4-46.3) fL Plt Count 288 (182-369) K/mm3 MPV 9.5 (9.4-12.3) fl Neut % (Auto) 70.5 (34.0-71.1) % Lymph % (Auto) 14.4 L (19.3-51.7) % [place] % (Auto) 12.8 H (4.7-12.5) % Eos % (Auto) 1.9 (0.7-5.8) Baso % (Auto) 0.2 (0.1-1.2) % Neut # (Auto) 2.98 (1.56-6.13) K/mm3 Lymph # (Auto) 0.61 L (1.18-3.74) K/mm3 [place] # (Auto) 0.54 H (0.24-0.36) K/mm3 Eos # (Auto) 0.08 (0.04-0.36) K/mm3 Baso # (Auto) 0.01 (0.01-0.08) K/mm3 Sodium 144 (136-145) mEq/L Potassium 3.7 (3.5-5.1) mEq/L Chloride 108 H (98-107) mEq/L Carbon Dioxide 28 (21-32) mEq/L Anion Gap 11.7 (5-15) BUN 17 (7-18) mg/dL Creatinine 1.0 (0.55-1.02) mg/dL Est Cr Clr Drug Dosing 28.47 mL/min Estimated GFR (MDRD) 52 (>60) mL/min BUN/Creatinine Ratio 17.0 (14-18) Glucose 111 H (70-99) mg/dL Uric Acid 4.5 (2.6-6.0) mg/dL Calcium 7.6 L (8.5-10.1) mg/dL Total Bilirubin 0.2 (0.2-1.0) mg/dL AST 16 (15-37) U/L ALT 23 (14-59) U/L Alkaline Phosphatase 60 (46-116) U/L C-Reactive Protein <0.2 (<1.0) mg/dL Total Protein 5.8 L (6.4-8.2) g/dl Albumin 2.8 L (3.4-5.0) g/dl Globulin 3.0 gm/dL Albumin/Globulin Ratio 0.9 L (1-2) Meds: Medications Discontinued Medications Generic Name Dose Route Start Last Admin Trade Name Joséq PRN Reason Stop Dose Admin Famotidine 20 mg 11/24/20 11:39 Famotidine 20 Mg Tab PO 11/24/20 11:40 ONETIME ONE - Re-Assessments/Exams Free Text/Narrative Re-Assessment/Exam: 11/24/20 11:40 I ordered an x-ray of her wrist and labs. The x-ray shows degenerative change with osteopenia. Nothing acute is otherwise seen. Her Hgb was low at 8.4. One month ago she was normal. I did a rectal exam and she had no gross blood but she did have guiac positive stool. I will get her on some pepcid and have her follow up with her doctor this week. Her CMP looks good. Her uric acid is normal. Her CRP was normal. I will get her in a wrist splint and give her some pepcid. 11/24/20 11:50 I will have her hold her aspirin for a week. I will have her keep taking the plavix and have her follow up with Dr Herndon. Departure - Departure Time of Disposition: 11:45 Disposition: Home, Self-Care 01 Condition: Good Clinical Impression: Primary osteoarthritis, right wrist GI bleed Qualifiers: GI bleed type/associated pathology: unspecified gastrointestinal hemorrhage type Qualified Code(s): K92.2 - Gastrointestinal hemorrhage, unspecified - Discharge Information *PRESCRIPTION DRUG MONITORING PROGRAM REVIEWED*: Not Applicable *COPY OF PRESCRIPTION DRUG MONITORING REPORT IN PATIENT MINH: Not Applicable Referrals: Lex Herndon MD [Primary Care Provider] - 3 Days Forms: ED Department Discharge Additional Instructions: Stop taking the aspirin for 5 days. Keep taking the rest of your medications. Take pepcid 20mg daily. Wear the splint to prevent further injury. Take tylenol as needed for pain. Follow up with Dr Herndon in 3 days. You will need to have your hemoglobin rechecked and if it is lower you may need a scope. Please return if you are worse. Sepsis Event Note (ED) - Focused Exam Vital Signs: Vital Signs Temp Pulse Resp BP Pulse Ox 11/24/20 10:18 97.0 F 68 18 116/63 96 - My Orders Last 24 Hours: My Active Orders 11/24/20 11:38 Durable Medical Equipment for Discharge [DME for Discharge] [COMM] Stat - Assessment/Plan Last 24 Hours: My Active Orders 11/24/20 11:38 Durable Medical Equipment for Discharge [DME for Discharge] [COMM] Stat
[2020-11-24] MEDS ORDERED: Famotidine 20 MG Tab PO ONE (11:39)
== END 2020-11-24 12:15 | disposition home or self-care (01) ==
LOC: JD.ED 09:40
DX: K92.2 Gastrointestinal hemorrhage, unspecified (principal); M19.031 Primary osteoarthritis, right wrist; I10 Essential (primary) hypertension; R60.0 Localized edema; Z87.891 Personal history of nicotine dependence; Z79.82 Long term (current) use of aspirin; Z79.02 Long term (current) use of antithrombotics/antiplatelets; Z79.899 Other long term (current) drug therapy
CPT/HCPCS: 36415; 73110; 80053; 84550; 85025; 86140; 99283; A9270